=== PATIENT | male | born 1960 | race American Indian/Alaskan Native ===

== ENCOUNTER 2021-07-03 23:45 | Inpatient (IN) | payer OTHER ==
--- NOTE | 2021-07-04 01:33 | Emergency Department Report ---
HPI - General Chief Complaint: Dizziness Time Seen by Provider: 07/04/21 01:26 - HPI HPI: 61-year-old -H[place]uran male presents to the emergency department with a complaint of lightheadedness/dizziness, feeling off balanced, and slurred speech. There is no obvious last known well time but he says that this began sometime this afternoon. He denies any headache, vision change, numbness or paresthesias, chest pain, shortness of breath, fever. The patient is a cigarette smoker but denies any illicit drug use or alcohol abuse. He denies any past medical history but has not seen a primary care physician for at least 5 years. He has not taken anything for symptoms prior to presentation today. ED Past Medical Hx - Past Medical History Previous Medical History?: No - Surgical History Past Surgical History?: No ED Review of Systems ROS: Stated complaint: DIZZY SLURING SPEECH Other details as noted in HPI Comment: All other systems reviewed and negative Constitutional: denies: chills, fever Eyes: denies: eye pain, vision change ENT: denies: ear pain, throat pain Respiratory: denies: cough, shortness of breath Cardiovascular: denies: chest pain, palpitations Gastrointestinal: denies: abdominal pain, vomiting Genitourinary: denies: dysuria, discharge Musculoskeletal: denies: back pain, arthralgia Skin: denies: rash, lesions Neurological: other (dizziness, lightheaded, slurred speech) Physical Exam - Physical Exam Physical Exam: GENERAL: The patient is well-developed well-nourished. HENT: Normocephalic. Atraumatic. Patient has moist mucous membranes. EYES: Extraocular motions are intact. Pupils equal reactive to light bilaterally. No nystagmus. NECK: Supple. Trachea is midline. CHEST/LUNGS: Clear to auscultation. There is no respiratory distress noted. HEART/CARDIOVASCULAR: Regular. There is no tachycardia. There is no murmur. ABDOMEN: Abdomen is soft, nontender. Patient has normal bowel sounds. There is no abdominal distention. SKIN: Skin is warm and dry. NEURO: The patient is awake, alert, and oriented. The patient is cooperative. Mild to moderate dysarthria. No facial asymmetry. Mild right upper extremity drift. No dysmetria. Cranial nerves II through XII grossly intact. MUSCULOSKELETAL: There is no tenderness or deformity. There is no limitation range of motion. ED Course - Consultations Consultation #1: 07/04/21 03:19 Shortly after the code stroke was initiated, the patient was seen by the telemedicine neurologist, Dr. Estrella. He has requested the patient received CT angiography of the head and neck to rule out a posterior circulation stroke and look for possible thrombus or occlusion. If the patient does not have any thrombus or occlusion, he should be admitted to the hospital for MRI and further stroke work-up. ED Medical Decision Making - Lab Data Result diagrams: 07/04/21 01:53 07/04/21 01:53 Lab Results 07/04/21 07/04/21 07/04/21 Range/Units 01:48 01:53 01:53 WBC 10.5 (4.5-11.0) K/mm3 RBC 6.66 H (3.65-5.03) M/mm3 Hgb 17.1 H (11.8-15.2) gm/dl Hct 50.7 H (35.5-45.6) % MCV 76 L (84-94) fl MCH 26 L (28-32) pg MCHC 34 (32-34) % RDW 15.6 H (13.2-15.2) % Plt Count 208 (140-440) K/mm3 Lymph % (Auto) 15.7 (13.4-35.0) % [place] % (Auto) 5.5 (0.0-7.3) % Eos % (Auto) 0.0 (0.0-4.3) % Baso % (Auto) 0.7 (0.0-1.8) % Lymph # (Auto) 1.7 (1.2-5.4) K/mm3 [place] # (Auto) 0.6 (0.0-0.8) K/mm3 Eos # (Auto) 0.0 (0.0-0.4) K/mm3 Baso # (Auto) 0.1 (0.0-0.1) K/mm3 Seg Neutrophils % 78.1 H (40.0-70.0) % Seg Neutrophils # 8.2 H (1.8-7.7) K/mm3 PT 13.1 (12.2-14.9) Sec. INR 0.94 (0.87-1.13) APTT 26.7 (24.2-36.6) Sec. Thrombin Time 16.6 (15.1-19.6) Sec. Sodium (137-145) mmol/L Potassium (3.6-5.0) mmol/L Chloride (98-107) mmol/L Carbon Dioxide (22-30) mmol/L Anion Gap mmol/L BUN (9-20) mg/dL Creatinine (0.8-1.3) mg/dL Estimated GFR ml/min BUN/Creatinine Ratio % Glucose (75-100) mg/dL POC Glucose 104 (70-105) mg/dL Calcium (8.4-10.2) mg/dL Total Bilirubin (0.1-1.2) mg/dL AST (5-40) units/L ALT (7-56) units/L Alkaline Phosphatase (35-129) units/L Total Creatine Kinase (55-170) units/L CK-MB (CK-2) (0.0-4.0) ng/mL CK-MB (CK-2) Rel Index (0-4) Troponin T (0.00-0.029) ng/mL Total Protein (6.3-8.2) g/dL Albumin (3.9-5) g/dL Albumin/Globulin Ratio % TSH (0.270-4.200) mlU/mL Plasma/Serum Alcohol (0-0.07) % 07/04/21 07/04/21 07/04/21 Range/Units 01:53 01:53 01:53 WBC (4.5-11.0) K/mm3 RBC (3.65-5.03) M/mm3 Hgb (11.8-15.2) gm/dl Hct (35.5-45.6) % MCV (84-94) fl MCH (28-32) pg MCHC (32-34) % RDW (13.2-15.2) % Plt Count (140-440) K/mm3 Lymph % (Auto) (13.4-35.0) % [place] % (Auto) (0.0-7.3) % Eos % (Auto) (0.0-4.3) % Baso % (Auto) (0.0-1.8) % Lymph # (Auto) (1.2-5.4) K/mm3 [place] # (Auto) (0.0-0.8) K/mm3 Eos # (Auto) (0.0-0.4) K/mm3 Baso # (Auto) (0.0-0.1) K/mm3 Seg Neutrophils % (40.0-70.0) % Seg Neutrophils # (1.8-7.7) K/mm3 PT (12.2-14.9) Sec. INR (0.87-1.13) APTT (24.2-36.6) Sec. Thrombin Time (15.1-19.6) Sec. Sodium 139 (137-145) mmol/L Potassium 3.7 (3.6-5.0) mmol/L Chloride 101.9 (98-107) mmol/L Carbon Dioxide 29 (22-30) mmol/L Anion Gap 12 mmol/L BUN 9 (9-20) mg/dL Creatinine 1.0 (0.8-1.3) mg/dL Estimated GFR > 60 ml/min BUN/Creatinine Ratio 9 % Glucose 117 H (75-100) mg/dL POC Glucose (70-105) mg/dL Calcium 9.4 (8.4-10.2) mg/dL Total Bilirubin 0.20 (0.1-1.2) mg/dL AST 14 (5-40) units/L ALT 16 (7-56) units/L Alkaline Phosphatase 174 H (35-129) units/L Total Creatine Kinase 69 (55-170) units/L CK-MB (CK-2) 1.4 (0.0-4.0) ng/mL CK-MB (CK-2) Rel Index 2.0 (0-4) Troponin T < 0.010 (0.00-0.029) ng/mL Total Protein 8.3 H (6.3-8.2) g/dL Albumin 4.5 (3.9-5) g/dL Albumin/Globulin Ratio 1.2 % TSH 1.510 (0.270-4.200) mlU/mL Plasma/Serum Alcohol < 0.01 (0-0.07) % - EKG Data -: EKG Interpreted by [facility] EKG shows normal: sinus rhythm, axis, intervals, QRS complexes (LVH), ST-T waves Rate: normal - EKG Data When compared to previous EKG there are: previous EKG unavailable Interpretation: LVH - Radiology Data Radiology results: report reviewed CT HEAD WITHOUT CONTRAST INDICATION / CLINICAL INFORMATION: Stroke symptoms. TECHNIQUE: All CT scans at this location are performed using CT dose reduction for ALARA by means of automated exposure control. COMPARISON: None available. FINDINGS: BRAIN PARENCHYMA: No acute intracranial hemorrhage. No evidence of recent infarct. No mass effect or midline shift. Remote infarcts in the right insula, left basal ganglia, and right frontal lobe. VENTRICULAR SYSTEM/EXTRA- AXIAL SPACES: Ventricles are normal for age. No extra-axial fluid collection. ORBITS: Normal as visualized. SKELETAL SYSTEM/SOFT TISSUES: Normal bones and soft tissues. PARANASAL SINUSES/MASTOID AIR CELLS: No significant abnormality. ADDITIONAL FINDINGS: None. IMPRESSION: 1. No acute intracranial abnormality. CT angio head INDICATION / CLINICAL INFORMATION: 61 years Male; CVA. TECHNIQUE: Thin cut axial images obtained through the head during IV bolus contrast administration. Sagittal, coronal, and 3 plane MIP reconstructions performed by the technologist. NASCET type criteria used evaluate stenoses. Automated exposure control utilized for radiation reduction purposes. COMPARISON: None available. FINDINGS: INTERNAL CAROTID ARTERIES: Atherosclerotic disease seen in the communicating and cavernous portions of both internal carotid arteries with areas of mild narrowing noted. Otherwise, the internal carotid arteries are widely patent. VERTEBROBASILAR SYSTEM: Focal area of mild narrowing seen in the distal right vertebral artery. 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 No associated aneurysm seen. DISTAL BRANCHES: Distal branches of the anterior, middle, and posterior cerebral arteries are fairly symmetric in appearance and number. ANEURYSM: None identified. ADDITIONAL FINDINGS: Remainder of the surrounding soft tissues are grossly normal. IMPRESSION: Focal areas of narrowing as described above. No evidence of large vessel occlusion. Signer Name: Kirill Márquez MD, III Signed: 07/04/2021 3:27 AM Workstation Name: [id number] Transcribed By: HR Dictated By: Kirill Márquez MD Electronically Authenticated By: Kirill Márquez MD Signed Date/Time: 07/04/21326 DD/ 1 TD/TT: -- [Addendum Report Added by KIRILL MÁRQUEZ at 2021-07-04 03:38:42] [facility] [address] [place] [address] Cat Scan Report Signed Patient: PRINCE PALOMARES MR#: [id number] : 1960 Acct:[id number] Age/Sex: 61 / M ADM Date: 07/03/21 Loc: ED Attending Dr: Ordering Physician: YAS DEL ANGEL DO Date of Service: 07/04/21 Procedure(s): CT angio head Accession Number(s): [id number] cc: YAS DEL ANGEL DO . CT angio head INDICATION / CLINICAL INFORMATION: 61 years Male; CVA. TECHNIQUE: Thin cut axial images obtained through the head during IV bolus contrast administration. Sagittal, coronal, and 3 plane MIP recon structions performed by the technologist. NASCET type criteria used evaluate stenoses. Automated exposure control utilized for radiation reduction purposes. COMPARISON: None available. FINDINGS: INTERNAL CAROTID ARTERIES: Atherosclerotic disease seen in the communicating and cavernous portions of both internal carotid arteries with areas of mild narrowing noted. Otherwise, the internal carotid arteries are widely patent. VERTEBROBASILAR SYSTEM: Focal area of mild narrowing seen in the distal right vertebral artery. 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 No associated aneurysm seen. DISTAL BRANCHES: Distal branches of the anterior, middle, and posterior cerebral arteries are fa irly symmetric in appearance and number. ANEURYSM: None identified. ADDITIONAL FINDINGS: Remainder of the surrounding soft tissues are grossly normal. IMPRESSION: Focal areas of narrowing as described above. No evidence of large vessel occlusion. CT angio neck INDICATION / CLINICAL INFORMATION: 61 years Male; CVA. TECHNIQUE: Thin cut axial images obtained through the head during IV bolus contrast administration. Sagittal, coronal, and 3 plane MIP reconstructions performed by the technologist. NASCET type criteria used evaluate stenoses. All CT scans at this location are performed using CT dose reduction for ALARA by means of automated exposure control. COMPARISON: None available. FINDINGS: ARCH: Normal aortic arch branching suggested. Minimal atherosclerotic disease noted. CAROTID ARTERIES: The visualized common and internal carotid arteries are widely patent. VERTEBRAL ARTERIES: Codominant vertebral system seen. No significant stenosis appreciated. ADDITIONAL FINDINGS: Developmental venous anomaly again noted in the right frontal lobe region, which is of no clinical significance. There is osseous foraminal narrowing on the left at C4-5 related to moderate facet hypertrophy on the left at this level. Mildly prominent thyroid gland seen. No evidence of significant nodule appreciated. IMPRESSION: No significant stenosis appreciated on this CTA of the neck. - Medical Decision Making This patient presents to the emergency department with a complaint of lightheadedness/dizziness, feeling off balance, and some slurred speech or difficulty with speech that has been going on since this afternoon. This nons pecific last known well time takes the patient out of the window for TPA, but still is within the window for possible thrombectomy if necessary. A code stroke was initiated. Patient has an NIH stroke scale of 2 with some mild to moderate dysarthria and a mild right upper extremity drift. CT of the head without contrast did not show any hemorrhage, large vessel occlusion, or any other acute process. Patient was seen by the telemedicine neurologist, Dr. Ledesma, whose full recommendations are currently in the chart. Dr. Ledesma recommended CT angiography studies of the head and neck. CT angiography of the head and neck did not show any thrombus, occlusion, or any other acute process. Patient presents with extremely elevated blood pressure. He was given a dose of IV antihypertensive medication. Patient was given a full dose aspirin. He will be admitted to the hospital for further evaluation and treatment and was accepted for admission by the hospitalist, Dr. Larry. Critical Care Time: Yes Critical care time in (mins) excluding proc time.: 31 Critical care attestation.: If time is entered above; I have spent that time in minutes in the direct care of this critically ill patient, excluding procedure time. Critical care time was spent on this patient in doing his initial evaluation, multiple reeval uations, ordering and interpretation of labs and imaging, IV antihypertensive medication for his hypertensive urgency, discussion with the neurologist. Critical Care Time: 31 minutes ED Disposition Clinical Impression: Hypertensive urgency, malignant, Tobacco use disorder CVA (cerebral vascular accident) Qualifiers: CVA mechanism: unspecified Qualified Code(s): I63.9 - Cerebral infarction, unspecified Disposition: ADMITTED INPATIENT Is pt being admited?: Yes Condition: Serious Time of Disposition: 03:33
--- NOTE | 2021-07-04 01:54 | Cat Scan Report ---
CT HEAD WITHOUT CONTRAST INDICATION / CLINICAL INFORMATION: Stroke symptoms. TECHNIQUE: All CT scans at this location are performed using CT dose reduction for ALARA by means of automated exposure control. COMPARISON: None available. FINDINGS: BRAIN PARENCHYMA: No acute intracranial hemorrhage. No evidence of recent infarct. No mass effect or midline shift. Remote infarcts in the right insula, left basal ganglia, and right frontal lobe. VENTRICULAR SYSTEM/EXTRA-AXIAL SPACES: Ventricles are normal for age. No extra-axial fluid collection . ORBITS: Normal as visualized. SKELETAL SYSTEM/SOFT TISSUES: Normal bones and soft tissues. PARANASAL SINUSES/MASTOID AIR CELLS: No significant abnormality. ADDITIONAL FINDINGS: None. IMPRESSION: 1. No acute intracranial abnormality. Signer Name: Kamron Drummond MD Signed: 07/04/2021 1:50 AM Workstation Name: [id number]
--- NOTE | 2021-07-04 02:11 | Consultation ---
History of Present Illness History of present illness: [facility] Consult Note # Demographics Consult Type: Acute Stroke Level 2 (4.5-24 hrs) Patient Location: Emergency Room First Name: Adrian Last Name: Miky Date of : 1960 Age: 61 Gender: Male Facility: [facility] Time of Initial Page ( Time): 07/04/2021, 01:29 Time of Return Call ( Time): 07/04/2021, 01:43 # HPI Chief Complaint: dizziness speech changes History: 61M, tobacco user, presents with dizziness, lightheadedness, and slurred speech. On ED exam, also with slight right arm drift. LKWT 0400, symptoms present when he woke up in the afternoon. Has R exotropia. BP 246/114 # Scores Time of exam and NIHSS ( Time): 07/04/2021, 01:46 Level of Consciousness 1a: [0] = Alert; keenly responsive LOC Questions 1b: [0] = Answers both questions correctly LOC Commands 1c: [0] = Performs both tasks correctly Best Gaze 2: [0] = Normal Visual 3: [0] = No visual loss Facial Palsy 4: [0] = Normal symmetrical movements Motor Arm Left 5a: [0] = No drift Motor Arm Right 5b: [1] = Drift Motor Leg Left 6a: [0] = No drift Motor Leg Right 6b: [0] = No drift Limb Ataxia 7: [0] = Absent Sensory 8: [0] = Normal Best Language 9: [0] = No aphasia Dysarthria 10: [1] = [id number] dysarthria Extinction and Inattention 11: [0] = No abnormality NIHSS Total: 2 # Data Head CT: no bleed per radiologist read # Assessment Impression: Ischemic Stroke (Acute) # Plan Thrombolytic/Intervention: NOT IV Thrombolysis or IA Intervention candidate Thrombolytic Exclusion: > 4.5 hours Intraarterial Exclusion: non-disabling Target Blood Pressure: SBP < 220 DBP < 105 Labs: hemoglobin A1c lipid panel Imaging: (urgency: STAT): CT Angiogram Head and CT Angiogram Neck AND call back with results if abnormal Imaging: (urgency: routine): MRI Brain without contrast Diagnostic Test: echo without bubble study Therapy/Evaluation: PT/OT evaluation speech/swallow consultation Medication: ASA 325 then 81 daily Atorvastatin 80, then tailor daily dose to LDL < 70 goal If < 50% stenosis in cervical ICAs, give Plavix 300 x1 then 75 daily x3 weeks (3 weeks DAPT, then ASA monotherapy) DVT Prophylaxis: SCD chemical DVT prophylaxis Other: permissive hypertension telemetry monitoring I have discussed my recommendations with the referring provider Disposition: admit # Logistics Telemedicine: Interactive 2 way audio and visual telecommunication technology was utilized during this visit Electronically signed at 07/04/2021 02:11 (Eastern Time) by Baltazar Estrella MD Medications and Allergies Allergies Allergy/AdvReac Type Severity Reaction Status Date / Time No Known Allergies Allergy Unverified 07/04/21 01:14
[2021-07-04 02:12] LABS: Basophils # (Auto) 0.1 K/mm3 (0.0-0.1); Basophils % (Auto) 0.7 % (0.0-1.8); Hematocrit 50.7 % (35.5-45.6); Hemoglobin 17.1 gm/dl (11.8-15.2); Lymphocytes # (Auto) 1.7 K/mm3 (1.2-5.4); Lymphocytes % (Auto) 15.7 % (13.4-35.0); Mean Corpuscular HGB Conc 34 % (32-34); Mean Corpuscular Volume 76 fl (84-94); Monocytes # (Auto) 0.6 K/mm3 (0.0-0.8); Monocytes % (Auto) 5.5 % (0.0-7.3); Platelet Count 208 K/mm3 (140-440); Red Blood Count 6.66 M/mm3 (3.65-5.03); Red Cell Distribution Width 15.6 % (13.2-15.2)
[2021-07-04] MEDS ORDERED: MAGNESIUM HYDROXIDE (MOM) ORAL LIQD UDC PO PRN (02:15)
[2021-07-04] MEDS ORDERED: ACETAMINOPHEN 325 MG TAB PO PRN (02:15)
[2021-07-04] MEDS ORDERED: MORPHINE 4 MG/1 ML INJ IV PRN (02:15)
[2021-07-04] MEDS ORDERED: ONDANSETRON 4 MG/2 ML INJ IV PRN (02:15)
[2021-07-04] MEDS ORDERED: MORPHINE 2 MG/1 ML INJ IV PRN (02:15)
[2021-07-04 02:37] LABS: Alanine Aminotransferase 16 units/L (7-56); Albumin 4.5 g/dL (3.9-5); BUN/Creatinine Ratio 9; Blood Urea Nitrogen 9 mg/dL (9-20); Calcium 9.4 mg/dL (8.4-10.2); Creatine Kinase MB 1.4 ng/mL (0.0-4.0); Hemolysis Index 2; INR 0.94 (0.87-1.13)
[2021-07-04 02:38] LABS: Partial Thromboplastin Time 26.7 Sec. (24.2-36.6); Thrombin Time 16.6 Sec. (15.1-19.6)
[2021-07-04] MEDS ORDERED: ASPIRIN 81 MG TAB CHEW PO ONE (02:44)
--- NOTE | 2021-07-04 03:32 | Cat Scan Report ---
. CT angio head INDICATION / CLINICAL INFORMATION: 61 years Male; CVA. TECHNIQUE: Thin cut axial images obtained through the head during IV bolus contrast administration. S agittal, coronal, and 3 plane MIP reconstructions performed by the technologist. NASCET type criteria used evaluate stenoses. Automated exposure control utilized for radiation reduction purposes. COMPARISON: None available. FINDINGS: INTERNAL CAROTID ARTERIES: Atherosclerotic disease seen in the communicating and cavernous portions o f both internal carotid arteries with areas of mild narrowing noted. Otherwise, the internal carotid arteries are widely patent. VERTEBROBASILAR SYSTEM: Focal area of mild narrowing seen in the distal right vertebral artery. 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 No associated aneurysm seen. DISTAL BRANCHES: Distal branches of the anterior, middle, and posterior cerebral arteries are fairly symmetric in appearance and number. ANEURYSM: None identified. ADDITIONAL FINDINGS: Remainder of the surrounding soft tissues are grossly normal. IMPRESSION: Focal areas of narrowing as described above. No evidence of large vessel occlusion. Signer Name: Kirill Márquez MD, III Signed: 07/04/2021 3:27 AM Workstation Name: [email or web address]
--- NOTE | 2021-07-04 03:39 | History and Physical Report ---
History of Present Illness Date of examination: 07/04/21 Date of admission: 07/04/2021 Chief complaint: Slurred speech Dizziness History of present illness: 61-year-old -Maltese male with no significant past medical history presents to the emergency room today complaining of dizziness/lightheadedness, slurred speech and feeling off balance with started sometime this afternoon. He denies any headache, no fever or chills and no diaphoresis. Denies any numbness or paresthesias. No chest pain or shortness of breath, no nausea vomiting and no abdominal pain. Patient denies any sick contacts and no recent travel. Denies any contact with anyone with COVID-19. He admits that he has not followed up with any primary care physician in about 5 years. Upon arrival in the emergency room blood pressure was quite elevated with systolic in the 200s and diastolic in the 80s. Work-up in the emergency room today, CTA of the head and neck were unremarkable. CT of the head showed no acute findings. Patient was evaluated by the teleneurologist and recommendations have been worked up for possible CVA. Past History Past Medical History: hypertension Past Surgical History: denies: No surgical history Social history: smoking (Smokes 2 packs of cigarettes daily) Family history: no significant family history Medications and Allergies Allergies Allergy/AdvReac Type Severity Reaction Status Date / Time No Known Allergies Allergy Unverified 07/04/21 01:14 Active Meds: Active Medications Acetaminophen (Acetaminophen 325 Mg Tab) 650 mg PO Q6H PRN PRN Reason: Pain MILD(1-3)/Fever >100.5/LOVELAEC Aspirin (Aspirin 325 Mg Tab) 325 mg PO QDAY HILARY Atorvastatin Calcium (Atorvastatin 40 Mg Tab) 40 mg PO QHS HILARY Bisacodyl (Bisacodyl 10 Mg Rect Supp) 10 mg MA QDAY PRN PRN Reason: Constipation Heparin Sodium (Porcine) (Heparin 5,000 Unit/1 Ml Vial) 5,000 unit SUB-Q Q8HR HILARY Magnesium Hydroxide (Magnesium Hydroxide (Mom) Oral Liqd Udc) 30 ml PO Q4H PRN PRN Reason: Constipation Morphine Sulfate (Morphine 2 Mg/1 Ml Inj) 2 mg IV Q4H PRN PRN Reason: Pain, Moderate (4-6) Morphine Sulfate (Morphine 4 Mg/1 Ml Inj) 4 mg IV Q4H PRN PRN Reason: Pain , Severe (7-10) Ondansetron HCl (Ondansetron 4 Mg/2 Ml Inj) 4 mg IV Q8H PRN PRN Reason: Nausea And Vomiting Sodium Chloride (Sodium Chloride 0.9% 10 Ml Flush Syringe) 10 ml IV BID HILARY Sodium Chloride (Sodium Chloride 0.9% 10 Ml Flush Syringe) 10 ml IV PRN PRN PRN Reason: LINE FLUSH Sodium Chloride (Sodium Chloride 0.9% 10 Ml Flush Syringe) 10 ml IV BID HILARY Sodium Chloride (Sodium Chloride 0.9% 10 Ml Flush Syringe) 10 ml IV PRN PRN PRN Reason: LINE FLUSH Sodium Chloride (Sodium Chloride 0.9% 10 Ml Flush Syringe) 10 ml INJ PRN PRN PRN Reason: LINE FLUSH Review of Systems Constitutional: no fever, no chills Ears, nose, mouth and throat: no nasal congestion, no sore throat Cardiovascular: no chest pain, no palpitations Respiratory: no cough, no shortness of breath Gastrointestinal: no abdominal pain, no nausea, no vomiting, no diarrhea Genitourinary Male: no dysuria, no hematuria, no flank pain, no nocturia Musculoskeletal: no neck pain, no low back pain Integumentary: no rash, no pruritis Neurological: lack of coordination, change in speech, no headaches, no confusion Psychiatric: no anxiety, no depression Endocrine: no polyphagia, no polydipsia, no polyuria, no nocturia Exam - Constitutional Vitals: Temp Pulse Resp BP Pulse Ox 89 191/98 07/04/21 02:11 07/04/21 02:11 General appearance: Present: no acute distress, mild distress, well-nourished, disheveled - EENT Eyes: Present: PERRL, EOM intact. Absent: scleral icterus ENT: hearing intact, clear oral mucosa, dentition normal - Neck Neck: Present: supple, normal ROM - Respiratory Respiratory effort: normal Respiratory: bilateral: CTA - Cardiovascular Rhythm: regular Heart Sounds: Present: S1 & S2. Absent: gallop, systolic murmur, diastolic murmur, rub, click - Extremities Extremities: no ischemia, pulses intact, pulses symmetrical, No edema, normal temperature, normal color, Full ROM Peripheral Pulses: within normal limits - Abdominal General gastrointestinal: Present: soft, non-tender, non-distended, normal bowel sounds. Absent: mass - Integumentary Integumentary: Present: clear, warm, dry. Absent: rash - Musculoskeletal Musculoskeletal: strength equal bilaterally - Psychiatric Psychiatric: appropriate mood/affect, intact judgment & insight, memory intact, cooperative - Neurologic Neurologic: CNII-XII intact, no focal deficits, moves all extremities HEART Score - HEART Score Troponin: Troponin T < 0.010 ng/mL (0.00-0.029) 07/04/21 01:53 Results - Labs CBC & Chem 7: 07/04/21 01:53 07/04/21 01:53 Labs: Abnormal lab results 07/04/21 07/04/21 Range/Units 01:53 01:53 RBC 6.66 H (3.65-5.03) M/mm3 Hgb 17.1 H (11.8-15.2) gm/dl Hct 50.7 H (35.5-45.6) % MCV 76 L (84-94) fl MCH 26 L (28-32) pg RDW 15.6 H (13.2-15.2) % Seg Neutrophils % 78.1 H (40.0-70.0) % Seg Neutrophils # 8.2 H (1.8-7.7) K/mm3 Glucose 117 H (75-100) mg/dL Alkaline Phosphatase 174 H (35-129) units/L Total Protein 8.3 H (6.3-8.2) g/dL Assessment and Plan - Patient Problems (1) CVA (cerebral vascular accident) Current Visit: Yes Status: Acute Qualifiers: CVA mechanism: unspecified Qualified Code(s): I63.9 - Cerebral infarction, unspecified Plan to address problem: Patient admitted and placed on telemetry. We will start patient on daily aspirin and statin. Patient will be scheduled for MRI of the brain. Consult placed to neurology for evaluation and recommendation. (2) Hypertensive urgency, malignant Current Visit: No Status: Acute Plan to address problem: We place patient on antihypertensive as needed. We will monitor vital signs closely. (3) Tobacco use disorder Current Visit: No Status: Acute Plan to address problem: Patient counseled on quitting tobacco abuse. We offer nicotine patch as needed. (4) DVT prophylaxis Current Visit: No Status: Acute Plan to address problem: Patient placed on subcutaneous heparin. (5) Full code status Current Visit: No Status: Acute Plan to address problem: Patient is full code.
--- NOTE | 2021-07-04 03:40 | Cat Scan Report ---
CT angio neck INDICATION / CLINICAL INFORMATION: 61 years Male; CVA. TECHNIQUE: Thin cut axial images obtained through the head during IV bolus contrast administration. S agittal, coronal, and 3 plane MIP reconstructions performed by the technologist. NASCET type criteria used evaluate stenoses. All CT scans at this location are performed using CT dose reduction for ALAR A by means of automated exposure control. COMPARISON: None available. FINDINGS: ARCH: Normal aortic arch branching suggested. Minimal atherosclerotic disease noted. CAROTID ARTERIES: The visualized common and internal carotid arteries are widely patent. VERTEBRAL ARTERIES: Codominant vertebral system seen. No significant stenosis appreciated. ADDITIONAL FINDINGS: Developmental venous anomaly again noted in the right frontal lobe region, which is of no clinical significance. There is osseous foraminal narrowing on the left at C4-5 related to moderate facet hypertrophy on the left at this level. Mildly prominent thyroid gland seen. No evidence of significant nodule appreciated. IMPRESSION: No significant stenosis appreciated on this CTA of the neck. Signer Name: Kirill Márquez MD, III Signed: 07/04/2021 3:35 AM Workstation Name: [email or web address]
[2021-07-04] MEDS: HEPARIN 5,000 UNIT/1 ML VIAL SUB-Q SCH ×2 (06:13→13:38)
[2021-07-04 06:44] LABS: Bilirubin,Urine NEG (Negative); Blood,Urine SM (Negative); Color,Urine Yellow (Yellow); Mucus,Urine FEW /HPF; Protein,Urine <15 mg/dL mg/dL (Negative); Urobilinogen,Urine < 2.0 mg/dL (<2.0)
[2021-07-04 06:51] LABS: Amphetamine Screen,Urine PRESUMPTIVE NEGATIVE; Benzodiazepines Screen,Urine PRESUMPTIVE NEGATIVE; Cannabinoid Screen,Urine PRESUMPTIVE NEGATIVE; Cocaine Screen,Urine PRESUMPTIVE NEGATIVE; Methadone Screen,Urine PRESUMPTIVE NEGATIVE; Opiate Screen,Urine PRESUMPTIVE NEGATIVE
[2021-07-04] MEDS ORDERED: hydrALAZINE 10 MG TAB PO PRN (06:55)
--- NOTE | 2021-07-04 08:23 | Consultation ---
History of Present Illness Consult date: 07/04/21 Reason for Consult: Dizziness,slurred speech and HTN History of present illness: Slurred speech Dizziness History of present illness: 61-year-old -[place] male with no significant past medical history presents to the emergency room today complaining of dizziness/lightheadedness, slurred speech and feeling off balance with started sometime this afternoon. He denies any headache, no fever or chills and no diaphoresis. Denies any numbness or paresthesias. No chest pain or shortness of breath, no nausea vomiting and no abdominal pain. Patient denies any sick contacts and no recent travel. Denies any contact with anyone with COVID-19. He admits that he has not followed up with any primary care physician in about 5 years. Upon arrival in the emergency room blood pressure was quite elevated with systo lic in the 200s and diastolic in the 80s. Work-up in the emergency room today, CTA of the head and neck were remarkable for intracranial cavernous ICA stenosis and distal right vertebral a. stensosis. CT of the head showed no acute findings. MRI brain today is remarkable for left saunders radiata acute infarct Patient was evaluated by the teleneurologist and recommendations have been worked up for possible CVA. Past History Past Medical History: hypertension Past Surgical History: denies: No surgical history Social history: smoking (Smokes 2 packs of cigarettes daily) Family history: no significant family history Medications and Allergies Allergies Allergy/AdvReac Type Severity Reaction Status Date / Time No Known Allergies Allergy Unverified 07/04/21 01:14 Active Meds: Active Medications Acetaminophen (Acetaminophen 325 Mg Tab) 650 mg PO Q6H PRN PRN Reason: Pain MILD(1-3)/Fever >100.5/LOVELACE Aspirin (Aspirin 325 Mg Tab) 325 mg PO QDAY HILARY Atorvastatin Calcium (Atorvastatin 40 Mg Tab) 40 mg PO QHS HILARY Bisacodyl (Bisacodyl 10 Mg Rect Supp) 10 mg NE QDAY PRN PRN Reason: Constipation Heparin Sodium (Porcine) (Heparin 5,000 Unit/1 Ml Vial) 5,000 unit SUB-Q Q8HR HILARY Magnesium Hydroxide (Magnesium Hydroxide (Mom) Oral Liqd Udc) 30 ml PO Q4H PRN PRN Reason: Constipation Morphine Sulfate (Morphine 2 Mg/1 Ml Inj) 2 mg IV Q4H PRN PRN Reason: Pain, Moderate (4-6) Morphine Sulfate (Morphine 4 Mg/1 Ml Inj) 4 mg IV Q4H PRN PRN Reason: Pain , Severe (7-10) Ondansetron HCl (Ondansetron 4 Mg/2 Ml Inj) 4 mg IV Q8H PRN PRN Reason: Nausea And Vomiting Sodium Chloride (Sodium Chloride 0.9% 10 Ml Flush Syringe) 10 ml IV BID HILARY Sodium Chloride (Sodium Chloride 0.9% 10 Ml Flush Syringe) 10 ml IV PRN PRN PRN Reason: LINE FLUSH Sodium Chloride (Sodium Chloride 0.9% 10 Ml Flush Syringe) 10 ml IV BID HILARY Sodium Chloride (Sodium Chloride 0.9% 10 Ml Flush Syringe) 10 ml IV PRN PRN PRN Reason: LINE FLUSH Sodium Chloride (Sodium Chloride 0.9% 10 Ml Flush Syringe) 10 ml INJ PRN PRN PRN Reason: LINE FLUSH Review of Systems Constitutional: no fever, no chills Ears, nose, mouth and throat: no nasal congestion, no sore throat Cardiovascular: no chest pain, no palpitations Respiratory: no cough, no shortness of breath Gastrointestinal: no abdominal pain, no nausea, no vomiting, no diarrhea Genitourinary Male: no dysuria, no hematuria, no flank pain, no nocturia Musculoskeletal: no neck pain, no low back pain Integumentary: no rash, no pruritis Neurological: lack of coordination, change in speech, no headaches, no confusion Psychiatric: no anxiety, no depression Endocrine: no polyphagia, no polydipsia, no polyuria, no nocturia Past History Past Medical History: hypertension Past Surgical History: denies: No surgical history Social history: smoking (Smokes 2 packs of cigarettes daily) Family history: no significant family history Medications and Allergies Allergies Allergy/AdvReac Type Severity Reaction Status Date / Time No Known Allergies Allergy Unverified 07/04/21 01:14 Active Meds: Active Medications Acetaminophen (Acetaminophen 325 Mg Tab) 650 mg PO Q6H PRN PRN Reason: Pain MILD(1-3)/Fever >100.5/LOVELACE Aspirin (Aspirin 325 Mg Tab) 325 mg PO QDAY HILARY Atorvastatin Calcium (Atorvastatin 40 Mg Tab) 40 mg PO QHS HILARY Bisacodyl (Bisacodyl 10 Mg Rect Supp) 10 mg NE QDAY PRN PRN Reason: Constipation Heparin Sodium (Porcine) (Heparin 5,000 Unit/1 Ml Vial) 5,000 unit SUB-Q Q8HR [facility] Last Admin: 07/04/21 06:13 Dose: 5,000 unit Documented by: Hydralazine HCl (Hydralazine 10 Mg Tab) 10 mg PO Q4H PRN PRN Reason: hypertension Magnesium Hydroxide (Magnesium Hydroxide (Mom) Oral Liqd Udc) 30 ml PO Q4H PRN PRN Reason: Constipation Morphine Sulfate (Morphine 2 Mg/1 Ml Inj) 2 mg IV Q4H PRN PRN Reason: Pain, Moderate (4-6) Morphine Sulfate (Morphine 4 Mg/1 Ml Inj) 4 mg IV Q4H PRN PRN Reason: Pain , Severe (7-10) Ondansetron HCl (Ondansetron 4 Mg/2 Ml Inj) 4 mg IV Q8H PRN PRN Reason: Nausea And Vomiting Sodium Chloride (Sodium Chloride 0.9% 10 Ml Flush Syringe) 10 ml IV BID HILARY Sodium Chloride (Sodium Chloride 0.9% 10 Ml Flush Syringe) 10 ml IV PRN PRN PRN Reason: LINE FLUSH Physical Examination - Vital Signs Vital Signs: Vital Signs Temp Pulse Resp BP Pulse Ox 98.1 F 107 H 16 212/105 98 07/04/21 01:17 07/04/21 01:17 07/04/21 01:17 07/04/21 01:17 07/04/21 01:17 - Constitutional General appearance: comfortable - EENT EENT: Present: PERRL, mucous membranes moist - Respiratory Respiratory: Present: chest non-tender, lungs clear, rhonchi - Cardiovascular Cardiovascular: Present: regular rate, normal S1, normal S2 Extremities: Present: no peripheral edema bilatateraly, no clubbing, cyanosis - Gastrointestinal Gastrointestinal: Present: normoactive bowel sounds - Integumentary Integumentary: Present: normal - Neurologic Cranial nerve examination: PERRL, EOMI, other (slight right facial droop and lazy eye right side since ) Speech examination: intact Sensorimotor examination: intact Detailed motor examination: other (right pronator drift 4-/5 , right lower 4/5 plasnter is down brisk reflexes bilteral and positive hoffnman sign no clonus ,gait not done) - Level of Consciousness 1a. Level of Consciousness: alert/keenly responsive - LOC Questions 1b. LOC Questions: answers both correctly - LOC Command 1c. LOC Commands: performs tasks correctly - Best Gaze 2. Best Gaze: normal - Visual 3. Visual: no visual loss - Facial Palsy 4. Facial Palsy: minor paralysis - Motor Arm 5a. Motor Arm Left: no drift 5b. Motor Arm Right: drift - Motor Leg 6a. Motor Leg Left: no drift 6b. Motor Leg Right: no drift - Limb Ataxia 7. Limb Ataxia: present 1 limb - Sensory 8. Sensory: normal - Best Language 9. Best Language: no aphasia Results - Laboratory Findings CBC and BMP: 07/04/21 01:53 07/04/21 01:53 Abnormal Lab Findings: Abnormal Labs 07/04/21 07/04/21 01:53 01:53 RBC 6.66 H Hgb 17.1 H Hct 50.7 H MCV 76 L MCH 26 L RDW 15.6 H Seg Neutrophils % 78.1 H Seg Neutrophils # 8.2 H Glucose 117 H Alkaline Phosphatase 174 H Total Protein 8.3 H Assessment and Plan Assessment and Plan - Patient Problems (1) CVA (cerebral vascular accident) -this is 61 ys old male with lhx of HTN not on any medications preesnted with a new onset of right side weakness and unsteady gait -he is with hx of right lazy eye -Ct brain is unremarkable -CTA brain and neck are remarkable for Intra cranial sclerosis right and left Cavernous segment ICA and right vertebral a. -MRI brain is suggestive of acute left corna radiata infarct -echo is pending -A1C and LDL are pending -Started on ASA 325 mg and lipitor 40 mg -Pt/ST evaluate (2) Hypertensive urgency, malignant We place patient on antihypertensive as needed. We will monitor vital signs closely. (3) Tobacco use disorder Patient counseled on quitting tobacco abuse. We offer nicotine patch as needed. (4) DVT prophylaxis Patient placed on subcutaneous heparin. (5) Full code status Patient is full code. will follow
[2021-07-04] MEDS ORDERED: hydrALAZINE 20 MG/1 ML INJ IV PRN (08:53)
--- NOTE | 2021-07-04 08:58 | Event Note ---
Date: 07/04/21 Patient seen and examined resting comfortably is normal compliance with medical management as he does not follow-up with any physician. He reports positive tobacco use but no alcohol use counseling provided for 15 minutes about tobacco cessation and also current management plan. Will adjust blood pressure medication for better control mentating permissive hypertension begin to further wean me in a.m.
--- NOTE | 2021-07-04 10:38 | Magnetic Resonance Report ---
MR brain wo con INDICATION / CLINICAL INFORMATION: 61 years Male; stroke. TECHNIQUE: Multiplanar, multisequence MR images of the brain were obtained. COMPARISON: None available. FINDINGS: BRAIN / INTRACRANIAL CONTENTS: There is acute to infarct along the left saunders radiata measuring appr oximately 2 cm in greatest AP dimension at. There is otherwise extensive cerebral and pontine white m atter most consistent with microvascular angiopathy. There are old infarcts involving basal ganglia b ilaterally and right akhil. The diffusion imaging reveals no further evidence of recent infarction. This mild cerebral atrophy at. The ventricular system is correspondingly appropriate in size and conf iguration. No extra-axial fluid collections or significant mass effect is identified at. Is also old infarct involving right precentral gyrus with encephalomalacia laterally. CRANIOCERVICAL JUNCTION: No significant abnormality. VASCULAR FLOW-VOIDS: No significant abnormality. ORBITS: No significant abnormality of visualized orbits. SINUSES / MASTOIDS: No significant abnormality in the visualized paranasal sinuses or mastoid air audrey ls. ADDITIONAL FINDINGS: None. IMPRESSION: 1. There is a 2 cm acute infarct involving left saunders radiata as detailed above. 2. There is otherwise extensive microvascular angiopathy and multiple old infarcts as described. Signer Name: Jose Centeno MD Signed: 07/04/2021 10:33 AM Workstation Name: [id number]
[2021-07-04] MEDS: VALSARTAN 40 MG TAB PO SCH (12:03)
[2021-07-04] MEDS: ASPIRIN 325 MG TAB PO SCH (12:03)
[2021-07-05] MEDS: HEPARIN 5,000 UNIT/1 ML VIAL SUB-Q SCH ×4 (00:01→21:06)
[2021-07-05 06:05] LABS: BUN/Creatinine Ratio 16; Blood Urea Nitrogen 13 mg/dL (9-20); Calcium 9.2 mg/dL (8.4-10.2); Chol/HDL Ratio 3.07 %; HDL Cholesterol 38 mg/dL (40-59); Hemolysis Index 7; LDL Cholesterol,Direct 61 mg/dL (50-130)
[2021-07-05 06:17] LABS: Basophils % (Auto) 0.6 % (0.0-1.8); Eosinophils # (Auto) 0.1 K/mm3 (0.0-0.4); Eosinophils % (Auto) 0.9 % (0.0-4.3); Hematocrit 45.5 % (35.5-45.6); Hemoglobin 15.2 gm/dl (11.8-15.2); Lymphocytes # (Auto) 2.3 K/mm3 (1.2-5.4); Mean Corpuscular HGB Conc 33 % (32-34); Mean Corpuscular Volume 76 fl (84-94); Monocytes # (Auto) 0.5 K/mm3 (0.0-0.8); Monocytes % (Auto) 6.8 % (0.0-7.3); Platelet Count 196 K/mm3 (140-440); Red Blood Count 5.98 M/mm3 (3.65-5.03); Red Cell Distribution Width 15.6 % (13.2-15.2)
[2021-07-05 06:24] LABS: INR 0.95 (0.87-1.13)
[2021-07-05] MEDS: VALSARTAN 40 MG TAB PO SCH ×3 (09:52→21:05)
[2021-07-05] MEDS: ASPIRIN 325 MG TAB PO SCH (09:52)
--- NOTE | 2021-07-05 11:28 | Magnetic Resonance Report ---
MR cervical spine wo con INDICATION / CLINICAL INFORMATION: 61 years Male; Cervical Myelopathy, progressive LEs weakness and frequent fall. TECHNIQUE: Multisequence, multiplanar images of the cervical spine were obtained. COMPARISON: None available. FINDINGS: CRANIOCERVICAL JUNCTION:No significant abnormality. ALIGNMENT: There is no significant spondylolisthesis involving cervical spine. VERTEBRAE:There is mild edema involving left articular facets at C4-5. There is no significant edema of the cervical vertebral bodies. VISUALIZED SPINAL CORD: The cervical spinal cord appears to demonstrate appropriate signal intensity on the combination of sequences. [id number] ANALYSIS: C2-3: No significant abnormality. C3-4: There is no disc protrusion or central stenosis at. The left facet joint hypertrophy results in mild left foraminal narrowing. C4-5: There is no central spinal stenosis. The left facet joint hypertrophy contributes to moderate l eft neural foraminal narrowing. C5-6: There is a slight disc bulge without significant central spinal stenosis. There is moderate to marked right and moderate left neural foraminal narrowing C6-7: There is no central spinal stenosis at. There is moderate to right and milder left neural moy inal narrowing. C7-T1: No significant abnormality. PARASPINAL SOFT TISSUES: No significant abnormality. ADDITIONAL FINDINGS: No epidural collections are identified. IMPRESSION: 1. There are multilevel degenerative changes and neural foraminal narrowing involving cervical spine, most notable at C5-6 and C6-7 and on the left at C4-5 as detailed above. Signer Name: Jose Centeno MD Signed: 07/05/2021 11:24 AM Workstation Name: [id number]
--- NOTE | 2021-07-05 11:37 | Electrocardiograph Report ---
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
--- NOTE | 2021-07-05 13:02 | Progress Note ---
Assessment and Plan Assessment and Plan - Patient Problems # CVA (cerebral vascular accident) -this is 61 ys old male with lhx of HTN not on any medications presented with a new onset of right side weakness and unsteady gait -he is with hx of right lazy eye -Ct brain is unremarkable -CTA brain and neck are remarkable for Intra cranial sclerosis right and left Cavernous segment ICA and right vertebral a. -MRI brain is suggestive of acute left corna radiata infarct -echo is remarkable for Ef#50-55% -A1C pending and LDL #61 -Started on ASA 325 mg and lipitor 40 mg -Pt/ST evaluate # Recurrent vertigo positional -etiology not clear -no sign of central process -no hx of vertigo before -suggest antivert prn and check for orthostatic changes -consider repeat MRI brain as needed -Avoid aggressive BP control # Hypertensive urgency, malignant -We place patient on antihypertensive as needed. -We will monitor vital signs closely. -now BP is <120/80 avoid aggressive BP control and hydrate !! # Brisk reflexes upper and lower with no clonus no lopez sign -b12 WNL -MRI cervical showed lateral stenosis with no central process # Tobacco use disorder Patient counseled on quitting tobacco abuse. We offer nicotine patch as needed. # DVT prophylaxis Patient placed on subcutaneous heparin. # Full code status Patient is full code. PLAN 1- avoid aggressive BP control mainatin around 150/80 2- Hydration 3- check for orthostatic changes 4- antivert 0.5 tablet Q6 hours prn for vertigo 5- maintain ASA and Lipitor 6- Pt therapy will follow Subjective Date of service: 07/05/21 Principal diagnosis: right side weakness and vertigo today Interval history: according to pt. weakness is better he is complaining of recurrent vertigo when sit or move head denied any diplopia or swallowing difficulty Objective - Vital Sign Vital Signs - 12hr 07/05/21 07/05/21 07/05/21 01:01 02:01 02:41 Temperature Pulse Rate 73 72 57 L Respiratory 16 17 15 Rate Blood Pressure 135/69 134/62 134/67 O2 Sat by Pulse 98 88 96 Oximetry 07/05/21 07/05/21 07/05/21 02:50 03:01 03:11 Temperature Pulse Rate 61 76 73 Respiratory 17 14 20 Rate Blood Pressure 109/51 109/51 122/65 O2 Sat by Pulse 99 98 100 Oximetry 07/05/21 07/05/21 07/05/21 03:21 03:31 03:41 Temperature Pulse Rate 64 58 L 57 L Respiratory 18 17 16 Rate Blood Pressure 131/62 131/62 102/43 O2 Sat by Pulse 98 98 98 Oximetry 07/05/21 07/05/21 07/05/21 03:51 04:26 07:37 Temperature 98.8 F 98.6 F Pulse Rate 56 L 68 67 Respiratory 15 16 20 Rate Blood Pressure 111/47 116/70 123/63 O2 Sat by Pulse 99 97 98 Oximetry 07/05/21 07/05/21 09:52 11:26 Temperature 98.9 F Pulse Rate 70 90 Respiratory 20 Rate Blood Pressure 125/80 101/51 O2 Sat by Pulse 95 Oximetry - General Apperance Constitutional: comfortable - EENT EENT: PERRL, mucous membranes moist - Respiratory Respiratory: lungs clear, rhonchi - Cardiovascular Cardiovascular: regular rate, normal S1, normal S2 Extremities: no peripheral edema bilat, no clubbing, cyanosis - Gastrointestinal Gastrointestinal: normoactive bowel sounds - Integumentary Integumentary: normal - Neurologic Cranial nerve examination: PERRL, EOMI, other (lazy right eye with decrese vision , slight right facial droop) Detailed motor examination: other (right side pronator drift , gait not done also noted slight dysmetria right upper !!) - Laboratory Findings CBC and BMP: 07/05/21 05:24 07/05/21 05:24 Abnormal Lab Findings: Abnormal Labs 07/04/21 07/04/21 07/05/21 01:53 01:53 05:24 RBC 6.66 H 5.98 H Hgb 17.1 H Hct 50.7 H MCV 76 L 76 L MCH 26 L 25 L RDW 15.6 H 15.6 H Seg Neutrophils % 78.1 H Seg Neutrophils # 8.2 H Glucose 117 H Alkaline Phosphatase 174 H Total Protein 8.3 H HDL Cholesterol 07/05/21 05:24 RBC Hgb Hct MCV MCH RDW Seg Neutrophils % Seg Neutrophils # Glucose Alkaline Phosphatase Total Protein HDL Cholesterol 38 L
--- NOTE | 2021-07-05 15:53 | Progress Note ---
Assessment and Plan Assessment and plan: Hospital course to date 07/05/2021: Patient still remains dizzy when trying to ambulate. Physical therap y recommend acute rehab. Set up for rehab will be challenging as patient is , currently working with case management for outpatient set up for [facility] PT services. MRI C-spine ordered by neurology demonstrates multilevel degenerative changes and foraminal narrowing. We will continue supportive care. Assessment and plan (1) CVA (cerebral vascular accident) Current Visit: Yes Status: Acute Qualifiers: CVA mechanism: unspecified Qualified Code(s): I63.9 - Cerebral infarction, unspecified Plan to address problem: Patient admitted and placed on telemetry. We will start patient on daily aspirin and statin. Patient will be scheduled for MRI of the brain. Consult placed to neurology for evaluation and recommendation. Aspirin /statin (2) Hypertensive urgency, malignant Current Visit: No Status: Acute Plan to address problem: We place patient on antihypertensive as needed. We will monitor vital signs closely. (3) Recurrent positional vertigo Current Visit: No Status: Acute Plan to address problem: Per neurology etiology is unclear avoid overtreating blood pressure, will continue to monitor Antivert as needed (4) Tobacco use disorder Current Visit: No Status: Acute Plan to address problem: Patient counseled on quitting tobacco abuse. We offer nicotine patch as needed. (5) DVT prophylaxis Current Visit: No Status: Acute Plan to address problem: Patient placed on subcutaneous heparin. (6) Full code status Current Visit: No Status: Acute Plan to address problem: Patient is full code. History Interval history: No acute complaints this morning. On subsequent encounter patient states that he is feeling dizzy when he was working with physical therapy. He denies any issues with swallowing however he states that his speech is still not back at baseline. Hospitalist Physical - Physical exam Narrative exam: - General Apperance Constitutional: comfortable, dizzy when walking - EENT EENT: PERRL, mucous membranes moist - Respiratory Respiratory: lungs clear, rhonchi - Cardiovascular Cardiovascular: regular rate, normal S1, normal S2 Extremities: no peripheral edema bilat, no clubbing, cyanosis - Gastrointestinal Gastrointestinal: normoactive bowel sounds - Integumentary Integumentary: normal - Neurologic Cranial nerve examination: PERRL, EOMI, other (lazy right eye with decreased vision , slight right facial droop) Detailed motor examination: other (right side pronator drift , gait not done also noted slight dysmetria right upper) - Constitutional Vitals: Temp Pulse Resp BP Pulse Ox 98.9 F 90 20 101/51 95 07/05/21 11:26 07/05/21 11:26 07/05/21 11:26 07/05/21 11:26 07/05/21 11:26 General appearance: Present: no acute distress, mild distress, well-nourished, disheveled HEART Score - HEART Score Troponin: Troponin T < 0.010 ng/mL (0.00-0.029) 07/04/21 01:53 Results - Labs CBC & Chem 7: 07/05/21 05:24 07/05/21 05:24 Labs: Laboratory Last Values WBC 7.4 K/mm3 (4.5-11.0) 07/05/21 05:24 RBC 5.98 M/mm3 (3.65-5.03) H 07/05/21 05:24 Hgb 15.2 gm/dl (11.8-15.2) 07/05/21 05:24 Hct 45.5 % (35.5-45.6) 07/05/21 05:24 MCV 76 fl (84-94) L 07/05/21 05:24 MCH 25 pg (28-32) L 07/05/21 05:24 MCHC 33 % (32-34) 07/05/21 05:24 RDW 15.6 % (13.2-15.2) H 07/05/21 05:24 Plt Count 196 K/mm3 (140-440) 07/05/21 05:24 Lymph % (Auto) 31.0 % (13.4-35.0) 07/05/21 05:24 Williamson % (Auto) 6.8 % (0.0-7.3) 07/05/21 05:24 Eos % (Auto) 0.9 % (0.0-4.3) 07/05/21 05:24 Baso % (Auto) 0.6 % (0.0-1.8) 07/05/21 05:24 Lymph # (Auto) 2.3 K/mm3 (1.2-5.4) 07/05/21 05:24 Williamson # (Auto) 0.5 K/mm3 (0.0-0.8) 07/05/21 05:24 Eos # (Auto) 0.1 K/mm3 (0.0-0.4) 07/05/21 05:24 Baso # (Auto) 0.0 K/mm3 (0.0-0.1) 07/05/21 05:24 Seg Neutrophils % 60.7 % (40.0-70.0) 07/05/21 05:24 Seg Neutrophils # 4.5 K/mm3 (1.8-7.7) 07/05/21 05:24 PT 13.2 Sec. (12.2-14.9) 07/05/21 05:24 INR 0.95 (0.87-1.13) 07/05/21 05:24 APTT 26.7 Sec. (24.2-36.6) 07/04/21 01:53 Thrombin Time 16.6 Sec. (15.1-19.6) 07/04/21 01:53 Sodium 140 mmol/L (137-145) 07/05/21 05:24 Potassium 3.9 mmol/L (3.6-5.0) 07/05/21 05:24 Chloride 106.4 mmol/L (98-107) 07/05/21 05:24 Carbon Dioxide 22 mmol/L (22-30) D 07/05/21 05:24 Anion Gap 16 mmol/L 07/05/21 05:24 BUN 13 mg/dL (9-20) 07/05/21 05:24 Creatinine 0.8 mg/dL (0.8-1.3) 07/05/21 05:24 Estimated GFR > 60 ml/min 07/05/21 05:24 BUN/Creatinine Ratio 16 % 07/05/21 05:24 Glucose 95 mg/dL (75-100) 07/05/21 05:24 POC Glucose 104 mg/dL (70-105) 07/04/21 01:48 Calcium 9.2 mg/dL (8.4-10.2) 07/05/21 05:24 Total Bilirubin 0.20 mg/dL (0.1-1.2) 07/04/21 01:53 AST 14 units/L (5-40) 07/04/21 01:53 ALT 16 units/L (7-56) 07/04/21 01:53 Alkaline Phosphatase 174 units/L (35-129) H 07/04/21 01:53 Total Creatine Kinase 69 units/L (55-170) 07/04/21 01:53 CK-MB (CK-2) 1.4 ng/mL (0.0-4.0) 07/04/21 01:53 CK-MB (CK-2) Rel Index 2.0 (0-4) 07/04/21 01:53 Troponin T < 0.010 ng/mL (0.00-0.029) 07/04/21 01:53 Total Protein 8.3 g/dL (6.3-8.2) H 07/04/21 01:53 Albumin 4.5 g/dL (3.9-5) 07/04/21 01:53 Albumin/Globulin Ratio 1.2 % 07/04/21 01:53 Triglycerides 120 mg/dL (2-149) 07/05/21 05:24 Cholesterol 117 mg/dL (50-199) 07/05/21 05:24 LDL Cholesterol Direct 61 mg/dL (50-130) 07/05/21 05:24 HDL Cholesterol 38 mg/dL (40-59) L 07/05/21 05:24 Cholesterol/HDL Ratio 3.07 % 07/05/21 05:24 Vitamin B12 345.1 pg/mL (211-911) 07/05/21 08:16 TSH 1.510 mlU/mL (0.270-4.200) 07/04/21 01:53 Urine Color Yellow (Yellow) 07/04/21 06:28 Urine Turbidity Clear (Clear) 07/04/21 06:28 Urine pH 5.0 (5.0-7.0) 07/04/21 06:28 Ur Specific [place] 1.014 (1.003-1.030) 07/04/21 06:28 Urine Protein <15 mg/dl mg/dL (Negative) 07/04/21 06:28 Urine Glucose (UA) Neg mg/dL (Negative) 07/04/21 06:28 Urine Ketones 20 mg/dL (Negative) 07/04/21 06:28 Urine Blood Sm (Negative) 07/04/21 06:28 Urine Nitrite Neg (Negative) 07/04/21 06:28 Urine Bilirubin Neg (Negative) 07/04/21 06:28 Urine Urobilinogen < 2.0 mg/dL (<2.0) 07/04/21 06:28 Ur Leukocyte Esterase Neg (Negative) 07/04/21 06:28 Urine WBC (Auto) 6.0 /HPF (0.0-6.0) 07/04/21 06:28 Urine RBC (Auto) 6.0 /HPF (0.0-6.0) 07/04/21 06:28 U Epithel Cells (Auto) 1.0 /HPF (0-13.0) 07/04/21 06:28 Urine Mucus Few /HPF 07/04/21 06:28 Urine Opiates Screen Presumptive negative 07/04/21 06:28 Urine Methadone Screen Presumptive negative 07/04/21 06:28 Ur Barbiturates Screen Presumptive negative 07/04/21 06:28 Ur Phencyclidine Scrn Presumptive negative 07/04/21 06:28 Ur Amphetamines Screen Presumptive negative 07/04/21 06:28 U Benzodiazepines Scrn Presumptive negative 07/04/21 06:28 Urine Cocaine Screen Presumptive negative 07/04/21 06:28 U Marijuana (THC) Screen Presumptive negative 07/04/21 06:28 Drugs of Abuse Note Disclamer 07/04/21 06:28 Plasma/Serum Alcohol < 0.01 % (0-0.07) 07/04/21 01:53 Active Medications - Current Medications Current Medications: Generic Name Dose Route Start Last Admin Trade Name Freq PRN Reason Stop Dose Admin Acetaminophen 650 mg 07/04/21 02:15 Acetaminophen 325 Mg Tab PO Q6H PRN Pain MILD(1-3)/Fever >100.5/LOVELACE Aspirin 325 mg 07/04/21 10:00 07/05/21 09:52 Aspirin 325 Mg Tab PO 325 mg QDAY HILARY Administration Atorvastatin Calcium 40 mg 07/04/21 22:00 07/05/21 00:01 Atorvastatin 40 Mg Tab PO 40 mg QHS HILARY Administration Bisacodyl 10 mg 07/04/21 03:28 Bisacodyl 10 Mg Rect Supp PA QDAY PRN Constipation Heparin Sodium (Porcine) 5,000 unit 07/04/21 06:00 07/05/21 15:06 Heparin 5,000 Unit/1 Ml Vial SUB-Q 5,000 unit Q8HR HILARY Administration Hydralazine HCl 10 mg 07/04/21 08:53 Hydralazine 20 Mg/1 Ml Inj IV Q4HR PRN Hypertension Isosorbide Mononitrate 60 mg 07/04/21 10:00 07/05/21 09:52 Isosorbide Mononitrate Er 60 Mg Tab PO 60 mg QDAY HILARY Administration Magnesium Hydroxide 30 ml 07/04/21 02:15 Magnesium Hydroxide (Mom) Oral Liqd Udc PO Q4H PRN Constipation Meclizine HCl 12.5 mg 07/05/21 13:03 Meclizine 12.5 Mg Tab PO Q12H PRN Vertigo Morphine Sulfate 2 mg 07/04/21 02:15 Morphine 2 Mg/1 Ml Inj IV Q4H PRN Pain, Moderate (4-6) Morphine Sulfate 4 mg 07/04/21 02:15 Morphine 4 Mg/1 Ml Inj IV Q4H PRN Pain , Severe (7-10) Ondansetron HCl 4 mg 07/04/21 02:15 Ondansetron 4 Mg/2 Ml Inj IV Q8H PRN Nausea And Vomiting Sodium Chloride 10 ml 07/04/21 10:00 07/05/21 09:52 Sodium Chloride 0.9% 10 Ml Flush Syringe IV 10 ml BID HILARY Administration Sodium Chloride 10 ml 07/04/21 02:15 Sodium Chloride 0.9% 10 Ml Flush Syringe IV PRN PRN LINE FLUSH Valsartan 80 mg 07/04/21 10:00 07/05/21 09:52 Valsartan 40 Mg Tab PO 80 mg BID HILARY Administration Nutrition/Malnutrition Assess - Dietary Evaluation Nutrition/Malnutrition Findings: Nutrition Notes Start: 07/04/21 16:44 Freq: Status: Active Protocol: Document 07/05/21 15:32 GB (Rec: 07/05/21 15:51 GB [email or web address]) Nutrition Notes Initial or Follow up Reassessment Current Diagnosis Hypertension Other Pertinent Diagnosis consult for life style change diet therapy education Current Diet cardiac Labs/Tests 07/05: mostly unremarkable Pertinent Medications NaCl Height 5 ft 10 in Weight 69.4 kg [place] Body Weight (kg) 75.45 BMI 21.9 Intake Prior to Admission Good Weight change and time frame 07/04 73.48 kg, 07/05 69.4 kg change of -4.082kg for -5.5% change Weight Status Appropriate Percent of energy/protein needs met: 75-100% meal intake meets 80% or greater of estimated energy needs. Burn Absent Trauma Absent GI Symptoms None Food Allergy No Skin Integrity/Comment no reported complications Current % PO Good (75-100%) Interpretation of Weight Loss (severe) >2% in 1 week #1 Nutrition Diagnosis Food and nutrition-related knowledge deficit Etiology HTN As Evidenced by Signs and Symptoms consult for lifestyle nutrition therapy education Is patient on ventilator? No Kcal/Kg value to use for calculation 30 Approximate Energy Requirements Using 2081 kcal/Kg Calculation Used for Recommendations Kcal/kg Additional Notes Protein: 1-1.2 g/k-83g Fluids: 1 ml/kcal or per MD Nutrition Intervention Change Diet Order: continue with current diet Nutrition Support: n/a Add Supplement/Snack (indicate name/kcal Offer snacks throughout day. /protein ) Education Handouts Provided NCM: Cardiac-TLC nutrition therapy Goal #1 po intake of meals to continue at 75% or greater daily during LOS Goal #2 Weight to mainain within +/-5% current weight during LOS Goal #3 Acceptance of nutrition education packet. Follow-Up By: 07/12/21
[2021-07-05] MEDS: MECLIZINE 12.5 MG TAB PO PRN (16:52)
--- NOTE | 2021-07-06 02:18 | Vascular Lab Report ---
DUPLEX DOPPLER ULTRASOUND CAROTID, BILATERAL INDICATION / CLINICAL INFORMATION: stroke. COMPARISON: None available. FINDINGS: RIGHT CAROTID: - PLAQUE ESTIMATE (%): < 50% - CCA velocity: 114 cm/sec. - ICA peak systolic velocity: 100 cm/sec. - ICA/CCA PSV Ratio: Less than 2 Right Vertebral Artery: Antegrade flow. LEFT CAROTID: - PLAQUE ESTIMATE: < 50% - CCA velocity: 137 cm/sec. - ICA peak systolic velocity: 110 cm/sec. - ICA/CCA PSV Ratio: Less than 2 Left Vertebral Artery: Antegrade flow. IMPRESSION: 1. Right Internal Carotid Artery: Less than 50% diameter stenosis. 2. Left Internal Carotid Artery: Less than 50% diameter stenosis. Velocity criteria are extrapolated from diameter data as defined by the Society of Radiologists in Ul trasound Consensus Conference, Radiology 2003; 229;340-346. NO STENOSIS (NORMAL) * Plaque = none; ICA PSV < 125 cm/sec; ICA/CCA PSV Ratio < 2.0 <50% STENOSIS * Plaque < 50%; ICA PSV < 125 cm/sec; ICA/CCA PSV Ratio < 2.0 50-69% STENOSIS * Plaque > 50%; ICA PSV = 125-230 cm/sec; ICA/CCA PSV Ratio = 2.0-4.0 >70% BUT <100% STENOSIS * Plaque > 50%; ICA PSV > 230 cm/sec; ICA/CCA PSV Ratio > 4.0 NEAR OCCLUSION * Plaque = visible lumen; ICA PSV = high/low/none; ICA/CCA PSV Ratio = variable TOTAL OCCLUSION * Plaque = no lumen; ICA PSV = none; ICA/CCA PSV Ratio = N/A Signer Name: Kamron Drummond MD Signed: 07/06/2021 2:14 AM Workstation Name: [id number]
[2021-07-06] MEDS: HEPARIN 5,000 UNIT/1 ML VIAL SUB-Q SCH ×3 (06:11→22:04)
--- NOTE | 2021-07-06 09:14 | Discharge Summary ---
Providers - Providers Date of Admission: 07/04/21 13:15 Date of discharge: 07/06/21 Attending physician: EARNEST HILLMAN MD 07/04/21 02:15 Consult to Dietitian/Nutrition [CONS] Routine Physician Instructions: Reason For Exam: Reason for Consult: Diet education 07/04/21 03:28 Consult to Physician [CONS] Routine Comment: Consulting Provider: SOCORRO CORTEZ Physician Instructions: Reason For Exam: DYSARTHRIA R/O CVA 07/04/21 03:29 Occupational Therapy Evaluate and Treat [CONS] Routine Comment: Reason For Exam: Neuro deficits Physical Therapy Evaluation and Treat [CONS] Routine Comment: Reason For Exam: Neuro deficits 07/04/21 03:30 Speech Therapy Evaluation and Treat [CONS] Routine Reason For Exam: swallow eval 07/05/21 08:12 Consult to Case Management [CONS] Routine Services Needed at Discharge: Physical Therapy 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 Physical therapy recommend acute rehab. Set up for rehab will be challenging as patient is , currently working with case management for outpatient set up for [facility] PT services. MRI C-spine ordered by neurology demonstrates multilevel degenerative changes and foraminal narrowing. We will continue supportive care. 07/06/2021: Patient dizziness is improved with Antivert. D escalated antihypertensive therapy. Goal 150/90 physical therapy currently being set up by in-house PT and case management team. Plan is for discharge potentially today. Patient prescriptions for aspirin, atorvastatin, Imdur, valsartan, Antivert were transmitted to patient pharmacy. He was advised to follow-up with his primary care doctor in 3 to 5 days. Assessment and plan (1) CVA (cerebral vascular accident) Current Visit: Yes Status: Acute Qualifiers: CVA mechanism: unspecified Qualified Code(s): I63.9 - Cerebral infarction, unspecified Plan to address problem: Patient admitted and placed on telemetry. We will start patient on daily aspirin and statin. Patient will be scheduled for MRI of the brain. Consult placed to neurology for evaluation and recommendation. Aspirin /statin (2) Hypertensive urgency, malignant Current Visit: No Status: Acute Plan to address problem: We place patient on antihypertensive as needed. We will monitor vital signs closely. (3) Recurrent positional vertigo Current Visit: No Status: Acute Plan to address problem: Per neurology etiology is unclear avoid overtreating blood pressure, will continue to monitor Antivert as needed (4) Tobacco use disorder Current Visit: No Status: Acute Plan to address problem: Patient counseled on quitting tobacco abuse. We offer nicotine patch as needed. (5) DVT prophylaxis Current Visit: No Status: Acute Plan to address problem: Patient placed on subcutaneous heparin. (6) Full code status Current Visit: No Status: Acute Plan to address problem: Patient is full code. Disposition: 03 [facility] Final Discharge Diagnosis (Prints w/discharge instructions): acute ischemic CVA Time spent for discharge: 35 Core Measure Documentation - Palliative Care Palliative Care/ Comfort Measures: Not Applicable - Core Measures Any of the following diagnoses?: stroke - Stroke Discharge Requirements Statin for LDL = or >70 mg/dl on DC: Yes Anticoag for atrial fib/atrial flutter: No Reason for no anticoag for AF/F on DC: Not Indicated Antithrombotic for ischemic stroke: Yes Exam - Constitutional Vitals: Temp Pulse Resp BP Pulse Ox 98.7 F 66 18 142/68 99 07/06/21 07:53 07/06/21 07:53 07/06/21 07:53 07/06/21 07:53 07/06/21 07:53 Plan Activity: advance as tolerated Weight Bearing Status: Weight Bear as Tolerated Diet: low fat, low cholesterol, advance as tolerated Follow up with: PRIMARY CARE, [Primary Care Provider] - 7 Days Prescriptions: AtorvaSTATin [Lipitor] 40 mg PO QHS 30 Days #30 tablet Meclizine [Antivert] 12.5 mg PO Q12H PRN 30 Days #60 tablet PRN Reason: Vertigo Aspirin 325 mg PO QDAY 30 Days #30 tablet Valsartan [Diovan] 80 mg PO BID 30 Days #60 tablet ISOSORBIDE MONOnitrate [Imdur ER] 60 mg PO QDAY 30 Days #30 tablet Other Discharge Orders: Physicial Therapy (Amb) Location: None Selected
[2021-07-06] MEDS: VALSARTAN 40 MG TAB PO SCH ×2 (10:42→22:04)
[2021-07-06] MEDS: ASPIRIN 325 MG TAB PO SCH (10:42)
--- NOTE | 2021-07-06 13:28 | Progress Note ---
Assessment and Plan Assessment and Plan - Patient Problems # CVA (cerebral vascular accident) -this is 61 ys old male with hx of HTN not on any medications presented with a new onset of right side weakness and unsteady gait -he is with hx of right lazy eye -Ct brain is unremarkable -CTA brain and neck are remarkable for Intra cranial sclerosis right and left Cavernous segment ICA and right vertebral a. -MRI brain is suggestive of acute left corna radiata infarct -echo is remarkable for Ef#50-55% -A1C pending and LDL #61 -Started on ASA 325 mg and lipitor 40 mg -Pt/ST evaluate # Recurrent vertigo positional -no sign of central process , doubt vertigo mostly dizziness !!!! -no hx of vertigo before -suggest antivert prn and -check for orthostatic changes is positive with decrease BP on standing HR not done -consider repeat MRI brain as needed -Avoid aggressive BP control -Hydration # Hypertensive urgency, malignant -We place patient on antihypertensive as needed. -We will monitor vital signs closely. -now BP is <120/80 avoid aggressive BP control and hydrate !! # Brisk reflexes upper and lower with no clonus no lopez sign -b12 WNL -MRI cervical showed lateral stenosis with no central process # Tobacco use disorder Patient counseled on quitting tobacco abuse. We offer nicotine patch as needed. # DVT prophylaxis Patient placed on subcutaneous heparin. # Full code status Patient is full code. PLAN 1- avoid aggressive BP control mainatin around 150/80 2- Hydration 3- check for orthostatic changes is noted POSITIVE 4- stop antivert 5- maintain ASA and Lipitor 6- Pt therapy 7- Follow up with neurology and PCP will sign off Subjective Principal diagnosis: right side weakness and vertigo today Interval history: according to pt. weakness is better he is complaining of vertigo/ dizziness is better today denied any diplopia or swallowing difficulty orthostatic changes is positive--HR not checked only BP Objective - Vital Sign Vital Signs - 12hr 07/06/21 07/06/21 07/06/21 04:05 05:00 07:53 Temperature 97.9 F 98.7 F Pulse Rate 65 66 Pulse Rate [ 79 Apical] Pulse Rate [ 79 From Monitor] Respiratory 16 17 18 Rate Blood Pressure 160/72 142/68 O2 Sat by Pulse 98 97 99 Oximetry 07/06/21 11:00 Temperature Pulse Rate 68 Pulse Rate [ Apical] Pulse Rate [ From Monitor] Respiratory Rate Blood Pressure O2 Sat by Pulse 97 Oximetry - General Apperance Constitutional: comfortable - EENT EENT: PERRL, mucous membranes moist - Respiratory Respiratory: chest non-tender, lungs clear, rhonchi - Cardiovascular Cardiovascular: regular rate, normal S1, normal S2 Extremities: no peripheral edema bilat, no clubbing, cyanosis - Gastrointestinal Gastrointestinal: normoactive bowel sounds - Integumentary Integumentary: normal - Neurologic Cranial nerve examination: PERRL, EOMI, intact (lazy right eye and right facial droop , decrese vision right eye) Detailed motor examination: other (right upper4-/5 right lower4/5 gait is unsteady slightly) - Laboratory Findings CBC and BMP: 07/05/21 05:24 07/05/21 05:24 Abnormal Lab Findings: Abnormal Labs 07/04/21 07/04/21 07/05/21 01:53 01:53 05:24 RBC 6.66 H 5.98 H Hgb 17.1 H Hct 50.7 H MCV 76 L 76 L MCH 26 L 25 L RDW 15.6 H 15.6 H Seg Neutrophils % 78.1 H Seg Neutrophils # 8.2 H Glucose 117 H Alkaline Phosphatase 174 H Total Protein 8.3 H HDL Cholesterol 07/05/21 05:24 RBC Hgb Hct MCV MCH RDW Seg Neutrophils % Seg Neutrophils # Glucose Alkaline Phosphatase Total Protein HDL Cholesterol 38 L
[2021-07-06] MEDS: MECLIZINE 12.5 MG TAB PO PRN (22:04)
[2021-07-07] MEDS: HEPARIN 5,000 UNIT/1 ML VIAL SUB-Q SCH ×3 (06:39→21:51)
--- NOTE | 2021-07-07 09:18 | Progress Note ---
Assessment and Plan Assessment and plan: Hospital course to date 07/05/2021: Patient still remains dizzy when trying to ambulate. Physical therap y recommend acute rehab. Set up for rehab will be challenging as patient is , currently working with case management for outpatient set up for [facility] PT services. MRI C-spine ordered by neurology demonstrates multilevel degenerative changes and foraminal narrowing. We will continue supportive care. 07/07/2021: Medical clear for d/c. Awaiting PT/CM set up for OP physical therapy. Assessment and plan (1) CVA (cerebral vascular accident) Current Visit: Yes Status: Acute Qualifiers: CVA mechanism: unspecified Qualified Code(s): I63.9 - Cerebral infarction, unspecified Plan to address problem: Patient admitted and placed on telemetry. We will start patient on daily aspirin and statin. Patient will be scheduled for MRI of the brain. Consult placed to neurology for evaluation and recommendation. Aspirin /statin (2) Hypertensive urgency, malignant Current Visit: No Status: Acute Plan to address problem: We place patient on antihypertensive as needed. We will monitor vital signs closely. (3) Recurrent positional vertigo Current Visit: No Status: Acute Plan to address problem: Per neurology etiology is unclear avoid overtreating blood pressure, will continue to monitor Antivert as needed (4) Tobacco use disorder Current Visit: No Status: Acute Plan to address problem: Patient counseled on quitting tobacco abuse. We offer nicotine patch as needed. (5) DVT prophylaxis Current Visit: No Status: Acute Plan to address problem: Patient placed on subcutaneous heparin. (6) Full code status Current Visit: No Status: Acute Plan to address problem: Patient is full code. History Interval history: No complaints this AM. Hospitalist Physical - Physical exam Narrative exam: - General Apperance Constitutional: comfortable, dizzy when walking - EENT EENT: PERRL, mucous membranes moist - Respiratory Respiratory: lungs clear, rhonchi - Cardiovascular Cardiovascular: regular rate, normal S1, normal S2 Extremities: no peripheral edema bilat, no clubbing, cyanosis - Gastrointestinal Gastrointestinal: normoactive bowel sounds - Integumentary Integumentary: normal - Neurologic Cranial nerve examination: PERRL, EOMI, other (lazy right eye with decreased vision , slight right facial droop) Detailed motor examination: other (right side pronator drift , gait not done also noted slight dysmetria right upper) - Constitutional Vitals: Temp Pulse Resp BP Pulse Ox 97.9 F 60 18 147/63 99 07/07/21 03:38 07/07/21 04:33 07/07/21 03:38 07/07/21 04:33 07/07/21 04:33 General appearance: Present: no acute distress, mild distress, well-nourished, disheveled HEART Score - HEART Score Troponin: Troponin T < 0.010 ng/mL (0.00-0.029) 07/04/21 01:53 Results - Labs CBC & Chem 7: 07/05/21 05:24 07/05/21 05:24 Labs: Laboratory Last Values WBC 7.4 K/mm3 (4.5-11.0) 07/05/21 05:24 RBC 5.98 M/mm3 (3.65-5.03) H 07/05/21 05:24 Hgb 15.2 gm/dl (11.8-15.2) 07/05/21 05:24 Hct 45.5 % (35.5-45.6) 07/05/21 05:24 MCV 76 fl (84-94) L 07/05/21 05:24 MCH 25 pg (28-32) L 07/05/21 05:24 MCHC 33 % (32-34) 07/05/21 05:24 RDW 15.6 % (13.2-15.2) H 07/05/21 05:24 Plt Count 196 K/mm3 (140-440) 07/05/21 05:24 Lymph % (Auto) 31.0 % (13.4-35.0) 07/05/21 05:24 [place] % (Auto) 6.8 % (0.0-7.3) 07/05/21 05:24 Eos % (Auto) 0.9 % (0.0-4.3) 07/05/21 05:24 Baso % (Auto) 0.6 % (0.0-1.8) 07/05/21 05:24 Lymph # (Auto) 2.3 K/mm3 (1.2-5.4) 07/05/21 05:24 [place] # (Auto) 0.5 K/mm3 (0.0-0.8) 07/05/21 05:24 Eos # (Auto) 0.1 K/mm3 (0.0-0.4) 07/05/21 05:24 Baso # (Auto) 0.0 K/mm3 (0.0-0.1) 07/05/21 05:24 Seg Neutrophils % 60.7 % (40.0-70.0) 07/05/21 05:24 Seg Neutrophils # 4.5 K/mm3 (1.8-7.7) 07/05/21 05:24 PT 13.2 Sec. (12.2-14.9) 07/05/21 05:24 INR 0.95 (0.87-1.13) 07/05/21 05:24 APTT 26.7 Sec. (24.2-36.6) 07/04/21 01:53 Thrombin Time 16.6 Sec. (15.1-19.6) 07/04/21 01:53 Sodium 140 mmol/L (137-145) 07/05/21 05:24 Potassium 3.9 mmol/L (3.6-5.0) 07/05/21 05:24 Chloride 106.4 mmol/L (98-107) 07/05/21 05:24 Carbon Dioxide 22 mmol/L (22-30) D 07/05/21 05:24 Anion Gap 16 mmol/L 07/05/21 05:24 BUN 13 mg/dL (9-20) 07/05/21 05:24 Creatinine 0.8 mg/dL (0.8-1.3) 07/05/21 05:24 Estimated GFR > 60 ml/min 07/05/21 05:24 BUN/Creatinine Ratio 16 % 07/05/21 05:24 Glucose 95 mg/dL (75-100) 07/05/21 05:24 POC Glucose 104 mg/dL (70-105) 07/04/21 01:48 Calcium 9.2 mg/dL (8.4-10.2) 07/05/21 05:24 Total Bilirubin 0.20 mg/dL (0.1-1.2) 07/04/21 01:53 AST 14 units/L (5-40) 07/04/21 01:53 ALT 16 units/L (7-56) 07/04/21 01:53 Alkaline Phosphatase 174 units/L (35-129) H 07/04/21 01:53 Total Creatine Kinase 69 units/L (55-170) 07/04/21 01:53 CK-MB (CK-2) 1.4 ng/mL (0.0-4.0) 07/04/21 01:53 CK-MB (CK-2) Rel Index 2.0 (0-4) 07/04/21 01:53 Troponin T < 0.010 ng/mL (0.00-0.029) 07/04/21 01:53 Total Protein 8.3 g/dL (6.3-8.2) H 07/04/21 01:53 Albumin 4.5 g/dL (3.9-5) 07/04/21 01:53 Albumin/Globulin Ratio 1.2 % 07/04/21 01:53 Triglycerides 120 mg/dL (2-149) 07/05/21 05:24 Cholesterol 117 mg/dL (50-199) 07/05/21 05:24 LDL Cholesterol Direct 61 mg/dL (50-130) 07/05/21 05:24 HDL Cholesterol 38 mg/dL (40-59) L 07/05/21 05:24 Cholesterol/HDL Ratio 3.07 % 07/05/21 05:24 Vitamin B12 345.1 pg/mL (211-911) 07/05/21 08:16 TSH 1.510 mlU/mL (0.270-4.200) 07/04/21 01:53 Urine Color Yellow (Yellow) 07/04/21 06:28 Urine Turbidity Clear (Clear) 07/04/21 06:28 Urine pH 5.0 (5.0-7.0) 07/04/21 06:28 Ur Specific [place] 1.014 (1.003-1.030) 07/04/21 06:28 Urine Protein <15 mg/dl mg/dL (Negative) 07/04/21 06:28 Urine Glucose (UA) Neg mg/dL (Negative) 07/04/21 06:28 Urine Ketones 20 mg/dL (Negative) 07/04/21 06:28 Urine Blood Sm (Negative) 07/04/21 06:28 Urine Nitrite Neg (Negative) 07/04/21 06:28 Urine Bilirubin Neg (Negative) 07/04/21 06:28 Urine Urobilinogen < 2.0 mg/dL (<2.0) 07/04/21 06:28 Ur Leukocyte Esterase Neg (Negative) 07/04/21 06:28 Urine WBC (Auto) 6.0 /HPF (0.0-6.0) 07/04/21 06:28 Urine RBC (Auto) 6.0 /HPF (0.0-6.0) 07/04/21 06:28 U Epithel Cells (Auto) 1.0 /HPF (0-13.0) 07/04/21 06:28 Urine Mucus Few /HPF 07/04/21 06:28 Urine Opiates Screen Presumptive negative 07/04/21 06:28 Urine Methadone Screen Presumptive negative 07/04/21 06:28 Ur Barbiturates Screen Presumptive negative 07/04/21 06:28 Ur Phencyclidine Scrn Presumptive negative 07/04/21 06:28 Ur Amphetamines Screen Presumptive negative 07/04/21 06:28 U Benzodiazepines Scrn Presumptive negative 07/04/21 06:28 Urine Cocaine Screen Presumptive negative 07/04/21 06:28 U Marijuana (THC) Screen Presumptive negative 07/04/21 06:28 Drugs of Abuse Note Disclamer 07/04/21 06:28 Plasma/Serum Alcohol < 0.01 % (0-0.07) 07/04/21 01:53 Mitchell/IV: Voiding Method Urinal Active Medications - Current Medications Current Medications: Generic Name Dose Route Start Last Admin Trade Name Freq PRN Reason Stop Dose Admin Acetaminophen 650 mg 07/04/21 02:15 Acetaminophen 325 Mg Tab PO Q6H PRN Pain MILD(1-3)/Fever >100.5/LOVELACE Aspirin 325 mg 07/04/21 10:00 07/06/21 10:42 Aspirin 325 Mg Tab PO 325 mg QDAY HILARY Administration Atorvastatin Calcium 40 mg 07/04/21 22:00 07/06/21 22:04 Atorvastatin 40 Mg Tab PO 40 mg QHS HILARY Administration Bisacodyl 10 mg 07/04/21 03:28 Bisacodyl 10 Mg Rect Supp MA QDAY PRN Constipation Heparin Sodium (Porcine) 5,000 unit 07/04/21 06:00 07/07/21 06:39 Heparin 5,000 Unit/1 Ml Vial SUB-Q 5,000 unit Q8HR HILARY Administration Hydralazine HCl 10 mg 07/04/21 08:53 Hydralazine 20 Mg/1 Ml Inj IV Q4HR PRN Hypertension Isosorbide Mononitrate 60 mg 07/04/21 10:00 07/06/21 10:42 Isosorbide Mononitrate Er 60 Mg Tab PO 60 mg QDAY HILARY Administration Magnesium Hydroxide 30 ml 07/04/21 02:15 Magnesium Hydroxide (Mom) Oral Liqd Udc PO Q4H PRN Constipation Meclizine HCl 12.5 mg 07/05/21 13:03 07/06/21 22:04 Meclizine 12.5 Mg Tab PO 12.5 mg Q12H PRN Administration Vertigo Morphine Sulfate 2 mg 07/04/21 02:15 Morphine 2 Mg/1 Ml Inj IV Q4H PRN Pain, Moderate (4-6) Morphine Sulfate 4 mg 07/04/21 02:15 Morphine 4 Mg/1 Ml Inj IV Q4H PRN Pain , Severe (7-10) Ondansetron HCl 4 mg 07/04/21 02:15 Ondansetron 4 Mg/2 Ml Inj IV Q8H PRN Nausea And Vomiting Sodium Chloride 10 ml 07/04/21 10:00 07/06/21 22:04 Sodium Chloride 0.9% 10 Ml Flush Syringe IV 10 ml BID HILARY Administration Sodium Chloride 10 ml 07/04/21 02:15 Sodium Chloride 0.9% 10 Ml Flush Syringe IV PRN PRN LINE FLUSH Valsartan 80 mg 07/04/21 10:00 07/06/21 22:04 Valsartan 40 Mg Tab PO 80 mg BID HILARY Administration Nutrition/Malnutrition Assess - Dietary Evaluation Nutrition/Malnutrition Findings: Nutrition Notes Start: 07/04/21 16:44 Freq: Status: Active Protocol: Document 07/05/21 15:32 GB (Rec: 07/05/21 15:51 GB [email or web address]) Nutrition Notes Initial or Follow up Reassessment Current Diagnosis Hypertension Other Pertinent Diagnosis consult for life style change diet therapy education Current Diet cardiac Labs/Tests 07/05: mostly unremarkable Pertinent Medications NaCl Height 5 ft 10 in Weight 69.4 kg [place] Body Weight (kg) 75.45 BMI 21.9 Intake Prior to Admission Good Weight change and time frame 07/04 73.48 kg, 07/05 69.4 kg change of -4.082kg for -5.5% change Weight Status Appropriate Percent of energy/protein needs met: 75-100% meal intake meets 80% or greater of estimated energy needs. Burn Absent Trauma Absent GI Symptoms None Food Allergy No Skin Integrity/Comment no reported complications Current % PO Good (75-100%) Interpretation of Weight Loss (severe) >2% in 1 week #1 Nutrition Diagnosis Food and nutrition-related knowledge deficit Etiology HTN As Evidenced by Signs and Symptoms consult for lifestyle nutrition therapy education Is patient on ventilator? No Kcal/Kg value to use for calculation 30 Approximate Energy Requirements Using 2081 kcal/Kg Calculation Used for Recommendations Kcal/kg Additional Notes Protein: 1-1.2 g/k-83g Fluids: 1 ml/kcal or per MD Nutrition Intervention Change Diet Order: continue with current diet Nutrition Support: n/a Add Supplement/Snack (indicate name/kcal Offer snacks throughout day. /protein ) Education Handouts Provided NCM: Cardiac-TLC nutrition therapy Goal #1 po intake of meals to continue at 75% or greater daily during LOS Goal #2 Weight to [place] within +/-5% current weight during LOS Goal #3 Acceptance of nutrition education packet. Follow-Up By: 07/12/21
[2021-07-07] MEDS: VALSARTAN 40 MG TAB PO SCH ×2 (13:30→21:51)
[2021-07-07] MEDS: ASPIRIN 325 MG TAB PO SCH (13:30)
[2021-07-08] MEDS: HEPARIN 5,000 UNIT/1 ML VIAL SUB-Q SCH (06:28)
[2021-07-08] MEDS: VALSARTAN 40 MG TAB PO SCH (11:05)
[2021-07-08] MEDS: ASPIRIN 325 MG TAB PO SCH (11:05)
--- NOTE | 2021-07-08 11:24 | Progress Note ---
Assessment and Plan Assessment and plan: Hospital course to date 07/05/2021: Patient still remains dizzy when trying to ambulate. Physical therap y recommend acute rehab. Set up for rehab will be challenging as patient is , currently working with case management for outpatient set up for [facility] PT services. MRI C-spine ordered by neurology demonstrates multilevel degenerative changes and foraminal narrowing. We will continue supportive care. 07/07/2021: Medical clear for d/c. Awaiting PT/CM set up for OP physical therapy. 07/08/21: No complaints. Medically clear for d/c. PT/CM has set up OP PT services. Rolling walker arranged. Patient should be discharged today. Assessment and plan (1) CVA (cerebral vascular accident) Current Visit: Yes Status: Acute Qualifiers: CVA mechanism: unspecified Qualified Code(s): I63.9 - Cerebral infarction, unspecified Plan to address problem: Patient admitted and placed on telemetry. We will start patient on daily aspirin and statin. Patient will be scheduled for MRI of the brain. Consult placed to neurology for evaluation and recommendation. Aspirin /statin (2) Hypertensive urgency, malignant Current Visit: No Status: Acute Plan to address problem: We place patient on antihypertensive as needed. We will monitor vital signs closely. (3) Recurrent positional vertigo Current Visit: No Status: Acute Plan to address problem: Per neurology etiology is unclear avoid overtreating blood pressure, will continue to monitor Antivert as needed (4) Tobacco use disorder Current Visit: No Status: Acute Plan to address problem: Patient counseled on quitting tobacco abuse. We offer nicotine patch as needed. (5) DVT prophylaxis Current Visit: No Status: Acute Plan to address problem: Patient placed on subcutaneous heparin. (6) Full code status Current Visit: No Status: Acute Plan to address problem: Patient is full code. History Interval history: No complaints this AM. Hospitalist Physical - Physical exam Narrative exam: - General Apperance Constitutional: comfortable, dizzy when walking - EENT EENT: PERRL, mucous membranes moist - Respiratory Respiratory: lungs clear, rhonchi - Cardiovascular Cardiovascular: regular rate, normal S1, normal S2 Extremities: no peripheral edema bilat, no clubbing, cyanosis - Gastrointestinal Gastrointestinal: normoactive bowel sounds - Integumentary Integumentary: normal - Neurologic Cranial nerve examination: PERRL, EOMI, other (lazy right eye with decreased vision , slight right facial droop) Detailed motor examination: other (right side pronator drift , gait not done also noted slight dysmetria right upper) - Constitutional Vitals: Temp Pulse Resp BP Pulse Ox 97.9 F 60 18 154/73 98 07/08/21 07:57 07/08/21 07:57 07/08/21 07:57 07/08/21 07:57 07/08/21 07:57 General appearance: Present: no acute distress, mild distress, well-nourished, disheveled HEART Score - HEART Score Troponin: Troponin T < 0.010 ng/mL (0.00-0.029) 07/04/21 01:53 Results - Labs CBC & Chem 7: 07/05/21 05:24 07/05/21 05:24 Labs: Laboratory Last Values WBC 7.4 K/mm3 (4.5-11.0) 07/05/21 05:24 RBC 5.98 M/mm3 (3.65-5.03) H 07/05/21 05:24 Hgb 15.2 gm/dl (11.8-15.2) 07/05/21 05:24 Hct 45.5 % (35.5-45.6) 07/05/21 05:24 MCV 76 fl (84-94) L 07/05/21 05:24 MCH 25 pg (28-32) L 07/05/21 05:24 MCHC 33 % (32-34) 07/05/21 05:24 RDW 15.6 % (13.2-15.2) H 07/05/21 05:24 Plt Count 196 K/mm3 (140-440) 07/05/21 05:24 Lymph % (Auto) 31.0 % (13.4-35.0) 07/05/21 05:24 [place] % (Auto) 6.8 % (0.0-7.3) 07/05/21 05:24 Eos % (Auto) 0.9 % (0.0-4.3) 07/05/21 05:24 Baso % (Auto) 0.6 % (0.0-1.8) 07/05/21 05:24 Lymph # (Auto) 2.3 K/mm3 (1.2-5.4) 07/05/21 05:24 [place] # (Auto) 0.5 K/mm3 (0.0-0.8) 07/05/21 05:24 Eos # (Auto) 0.1 K/mm3 (0.0-0.4) 07/05/21 05:24 Baso # (Auto) 0.0 K/mm3 (0.0-0.1) 07/05/21 05:24 Seg Neutrophils % 60.7 % (40.0-70.0) 07/05/21 05:24 Seg Neutrophils # 4.5 K/mm3 (1.8-7.7) 07/05/21 05:24 PT 13.2 Sec. (12.2-14.9) 07/05/21 05:24 INR 0.95 (0.87-1.13) 07/05/21 05:24 APTT 26.7 Sec. (24.2-36.6) 07/04/21 01:53 Thrombin Time 16.6 Sec. (15.1-19.6) 07/04/21 01:53 Sodium 140 mmol/L (137-145) 07/05/21 05:24 Potassium 3.9 mmol/L (3.6-5.0) 07/05/21 05:24 Chloride 106.4 mmol/L (98-107) 07/05/21 05:24 Carbon Dioxide 22 mmol/L (22-30) D 07/05/21 05:24 Anion Gap 16 mmol/L 07/05/21 05:24 BUN 13 mg/dL (9-20) 07/05/21 05:24 Creatinine 0.8 mg/dL (0.8-1.3) 07/05/21 05:24 Estimated GFR > 60 ml/min 07/05/21 05:24 BUN/Creatinine Ratio 16 % 07/05/21 05:24 Glucose 95 mg/dL (75-100) 07/05/21 05:24 POC Glucose 104 mg/dL (70-105) 07/04/21 01:48 Calcium 9.2 mg/dL (8.4-10.2) 07/05/21 05:24 Total Bilirubin 0.20 mg/dL (0.1-1.2) 07/04/21 01:53 AST 14 units/L (5-40) 07/04/21 01:53 ALT 16 units/L (7-56) 07/04/21 01:53 Alkaline Phosphatase 174 units/L (35-129) H 07/04/21 01:53 Total Creatine Kinase 69 units/L (55-170) 07/04/21 01:53 CK-MB (CK-2) 1.4 ng/mL (0.0-4.0) 07/04/21 01:53 CK-MB (CK-2) Rel Index 2.0 (0-4) 07/04/21 01:53 Troponin T < 0.010 ng/mL (0.00-0.029) 07/04/21 01:53 Total Protein 8.3 g/dL (6.3-8.2) H 07/04/21 01:53 Albumin 4.5 g/dL (3.9-5) 07/04/21 01:53 Albumin/Globulin Ratio 1.2 % 07/04/21 01:53 Triglycerides 120 mg/dL (2-149) 07/05/21 05:24 Cholesterol 117 mg/dL (50-199) 07/05/21 05:24 LDL Cholesterol Direct 61 mg/dL (50-130) 07/05/21 05:24 HDL Cholesterol 38 mg/dL (40-59) L 07/05/21 05:24 Cholesterol/HDL Ratio 3.07 % 07/05/21 05:24 Vitamin B12 345.1 pg/mL (211-911) 07/05/21 08:16 TSH 1.510 mlU/mL (0.270-4.200) 07/04/21 01:53 Urine Color Yellow (Yellow) 07/04/21 06:28 Urine Turbidity Clear (Clear) 07/04/21 06:28 Urine pH 5.0 (5.0-7.0) 07/04/21 06:28 Ur Specific [place] 1.014 (1.003-1.030) 07/04/21 06:28 Urine Protein <15 mg/dl mg/dL (Negative) 07/04/21 06:28 Urine Glucose (UA) Neg mg/dL (Negative) 07/04/21 06:28 Urine Ketones 20 mg/dL (Negative) 07/04/21 06:28 Urine Blood Sm (Negative) 07/04/21 06:28 Urine Nitrite Neg (Negative) 07/04/21 06:28 Urine Bilirubin Neg (Negative) 07/04/21 06:28 Urine Urobilinogen < 2.0 mg/dL (<2.0) 07/04/21 06:28 Ur Leukocyte Esterase Neg (Negative) 07/04/21 06:28 Urine WBC (Auto) 6.0 /HPF (0.0-6.0) 07/04/21 06:28 Urine RBC (Auto) 6.0 /HPF (0.0-6.0) 07/04/21 06:28 U Epithel Cells (Auto) 1.0 /HPF (0-13.0) 07/04/21 06:28 Urine Mucus Few /HPF 07/04/21 06:28 Urine Opiates Screen Presumptive negative 07/04/21 06:28 Urine Methadone Screen Presumptive negative 07/04/21 06:28 Ur Barbiturates Screen Presumptive negative 07/04/21 06:28 Ur Phencyclidine Scrn Presumptive negative 07/04/21 06:28 Ur Amphetamines Screen Presumptive negative 07/04/21 06:28 U Benzodiazepines Scrn Presumptive negative 07/04/21 06:28 Urine Cocaine Screen Presumptive negative 07/04/21 06:28 U Marijuana (THC) Screen Presumptive negative 07/04/21 06:28 Drugs of Abuse Note Disclamer 07/04/21 06:28 Plasma/Serum Alcohol < 0.01 % (0-0.07) 07/04/21 01:53 Mitchell/IV: Voiding Method Urinal Active Medications - Current Medications Current Medications: Generic Name Dose Route Start Last Admin Trade Name Freq PRN Reason Stop Dose Admin Acetaminophen 650 mg 07/04/21 02:15 Acetaminophen 325 Mg Tab PO Q6H PRN Pain MILD(1-3)/Fever >100.5/LOVELACE Aspirin 325 mg 07/04/21 10:00 07/08/21 11:05 Aspirin 325 Mg Tab PO 325 mg QDAY HILARY Administration Atorvastatin Calcium 40 mg 07/04/21 22:00 07/07/21 21:52 Atorvastatin 40 Mg Tab PO 40 mg QHS HILARY Administration Bisacodyl 10 mg 07/04/21 03:28 Bisacodyl 10 Mg Rect Supp SD QDAY PRN Constipation Heparin Sodium (Porcine) 5,000 unit 07/04/21 06:00 07/08/21 06:28 Heparin 5,000 Unit/1 Ml Vial SUB-Q 5,000 unit Q8HR HILARY Administration Hydralazine HCl 10 mg 07/04/21 08:53 Hydralazine 20 Mg/1 Ml Inj IV Q4HR PRN Hypertension Isosorbide Mononitrate 60 mg 07/04/21 10:00 07/08/21 11:05 Isosorbide Mononitrate Er 60 Mg Tab PO 60 mg QDAY HILARY Administration Magnesium Hydroxide 30 ml 07/04/21 02:15 Magnesium Hydroxide (Mom) Oral Liqd Udc PO Q4H PRN Constipation Meclizine HCl 12.5 mg 07/05/21 13:03 07/06/21 22:04 Meclizine 12.5 Mg Tab PO 12.5 mg Q12H PRN Administration Vertigo Morphine Sulfate 2 mg 07/04/21 02:15 Morphine 2 Mg/1 Ml Inj IV Q4H PRN Pain, Moderate (4-6) Morphine Sulfate 4 mg 07/04/21 02:15 Morphine 4 Mg/1 Ml Inj IV Q4H PRN Pain , Severe (7-10) Ondansetron HCl 4 mg 07/04/21 02:15 Ondansetron 4 Mg/2 Ml Inj IV Q8H PRN Nausea And Vomiting Sodium Chloride 10 ml 07/04/21 10:00 07/08/21 11:05 Sodium Chloride 0.9% 10 Ml Flush Syringe IV 10 ml BID HILARY Administration Sodium Chloride 10 ml 07/04/21 02:15 Sodium Chloride 0.9% 10 Ml Flush Syringe IV PRN PRN LINE FLUSH Valsartan 80 mg 07/04/21 10:00 07/08/21 11:05 Valsartan 40 Mg Tab PO 80 mg BID HILARY Administration Nutrition/Malnutrition Assess - Dietary Evaluation Nutrition/Malnutrition Findings: Nutrition Notes Start: 07/04/21 16:44 Freq: Status: Active Protocol: Document 07/05/21 15:32 GB (Rec: 07/05/21 15:51 GB [email or web address]) Nutrition Notes Initial or Follow up Reassessment Current Diagnosis Hypertension Other Pertinent Diagnosis consult for life style change diet therapy education Current Diet cardiac Labs/Tests 07/05: mostly unremarkable Pertinent Medications NaCl Height 5 ft 10 in Weight 69.4 kg [place] Body Weight (kg) 75.45 BMI 21.9 Intake Prior to Admission Good Weight change and time frame 07/04 73.48 kg, 07/05 69.4 kg change of -4.082kg for -5.5% change Weight Status Appropriate Percent of energy/protein needs met: 75-100% meal intake meets 80% or greater of estimated energy needs. Burn Absent Trauma Absent GI Symptoms None Food Allergy No Skin Integrity/Comment no reported complications Current % PO Good (75-100%) Interpretation of Weight Loss (severe) >2% in 1 week #1 Nutrition Diagnosis Food and nutrition-related knowledge deficit Etiology HTN As Evidenced by Signs and Symptoms consult for lifestyle nutrition therapy education Is patient on ventilator? No Kcal/Kg value to use for calculation 30 Approximate Energy Requirements Using 2081 kcal/Kg Calculation Used for Recommendations Kcal/kg Additional Notes Protein: 1-1.2 g/k-83g Fluids: 1 ml/kcal or per MD Nutrition Intervention Change Diet Order: continue with current diet Nutrition Support: n/a Add Supplement/Snack (indicate name/kcal Offer snacks throughout day. /protein ) Education Handouts Provided NCM: Cardiac-TLC nutrition therapy Goal #1 po intake of meals to continue at 75% or greater daily during LOS Goal #2 Weight to mainain within +/-5% current weight during LOS Goal #3 Acceptance of nutrition education packet. Follow-Up By: 07/12/21
[2021-07-08 17:05] VITALS: BP 122/61
== END 2021-07-08 18:05 | disposition home health service (06) | DRG 65 ==
LOC: ED 23:45 → 4A 07-04 02:15 → OBSVTOIN 07-04 13:15
PROVIDERS: ADMIT Internal Medicine Geriatric Medicine; ATTEND Internal Medicine
DX: I63.9 Cerebral infarction, unspecified (principal); G81.91 Hemiplegia, unspecified affecting right dominant side; I16.0 Hypertensive urgency; H81.4 Vertigo of central origin; R29.702 NIHSS score 2; R47.81 Slurred speech; I10 Essential (primary) hypertension; F17.210 Nicotine dependence, cigarettes, uncomplicated; Z71.6 Tobacco abuse counseling; R13.10 Dysphagia, unspecified
CPT/HCPCS: 36415; 70450; 70496; 70498; 70551; 72141; 80048; 80053; 80061; 80307; 80320; 81001; 82550; 82553; 82607; 82962; 84443; 84484; 85025; 85610; 85670; 85730; 93005; 93306; 93880; 99406; G0378; A9270-GY; G0480; J1644; Q9967

== ENCOUNTER 2021-08-09 21:47 | Emergency (ER) | payer SELFPAY ==
--- NOTE | 2021-08-09 23:18 | Emergency Department Report ---
ED General Adult HPI - General Chief complaint: High BP Stated complaint: HIGH BLOOD PRESSURE Time Seen by Provider: 08/09/21 22:53 Source: patient Mode of arrival: Wheelchair Limitations: No Limitations - History of Present Illness Initial comments: 61-year-old male presents to ED for elevated blood pressure reading at home. Patient was recently hospitalized with a stroke approximately 1 month ago. 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 Patient states that since his stroke, he has been checking his blood pressure at home every day, several times a day. Patient and his checked blood pressure tonight and systolic BP was in the 200s, which is abnormal for him. Patient reported to triage nurse that he was having some dizziness, however patient explains that he has been having vertigo since his stroke. While in the hospital last month he was given a prescription for meclizine. Patient states he was told to take it as needed, however he states that he has no vertigo daily, so his PCP told him to take the meclizine every day. Patient describes his dizziness as room spinning. Patient denies any new neuro deficits or other symptoms tonight. Only reason for visit was elevated blood pressure. Patient states systolic BP normally runs 130s to 150s. -: This evening Severity scale (0 -10): 0 Improves with: none Worsens with: none Associated Symptoms: denies: chest pain, headaches, nausea/vomiting, shortness of breath, weakness - Related Data Previous Rx's Medication Instructions Recorded Last Taken Type Aspirin 325 mg PO QDAY 30 Days #30 tablet 07/06/21 Unknown Rx AtorvaSTATin [Lipitor] 40 mg PO QHS 30 Days #30 tablet 07/06/21 Unknown Rx ISOSORBIDE MONOnitrate [Imdur ER] 60 mg PO QDAY 30 Days #30 tablet 07/06/21 Unknown Rx Meclizine [Antivert] 12.5 mg PO Q12H PRN 30 Days #60 07/06/21 Unknown Rx tablet Valsartan [Diovan] 80 mg PO BID 30 Days #60 tablet 07/06/21 Unknown Rx Allergies Allergy/AdvReac Type Severity Reaction Status Date / Time No Known Allergies Allergy Unverified 07/04/21 01:14 ED Review of Systems ROS: Stated complaint: HIGH BLOOD PRESSURE Other details as noted in HPI Comment: All other systems reviewed and negative Respiratory: denies: shortness of breath Cardiovascular: denies: chest pain Gastrointestinal: denies: abdominal pain, nausea, vomiting Neurological: vertigo (Chronic). denies: headache ED Past Medical Hx - Past Medical History Previous Medical History?: Yes Hx Hypertension: Yes Hx CVA: Yes Additional medical history: CVA 07/04/21 - Surgical History Past Surgical History?: No - Social History Smoking Status: Current Every Day Smoker - Medications Home Medications: Home Medications Medication Instructions Recorded Confirmed Last Taken Type Aspirin 325 mg PO QDAY 30 Days #30 tablet 07/06/21 08/09/21 Unknown Rx AtorvaSTATin [Lipitor] 40 mg PO QHS 30 Days #30 tablet 07/06/21 08/09/21 Unknown Rx ISOSORBIDE MONOnitrate [Imdur ER] 60 mg PO QDAY 30 Days #30 tablet 07/06/21 08/09/21 Unknown Rx Meclizine [Antivert] 12.5 mg PO Q12H PRN 30 Days #60 07/06/21 08/09/21 Unknown Rx tablet Valsartan [Diovan] 80 mg PO BID 30 Days #60 tablet 07/06/21 08/09/21 Unknown Rx ED Physical Exam - General Limitations: No Limitations General appearance: alert, in no apparent distress - Head Head exam: Present: atraumatic, normocephalic - Eye Eye exam: Present: normal appearance - ENT ENT exam: Present: mucous membranes moist - Neck Neck exam: Present: normal inspection - Respiratory Respiratory exam: Present: normal lung sounds bilaterally. Absent: respiratory distress - Cardiovascular Cardiovascular Exam: Present: regular rate, normal rhythm - GI/Abdominal GI/Abdominal exam: Present: soft. Absent: distended, tenderness - Extremities Exam Extremities exam: Present: normal inspection - Neurological Exam Neurological exam: Present: alert, oriented X3, motor sensory deficit (Baseline right-sided weakness). Absent: CN II-XII intact (Speech is slurred (baseline)) - Psychiatric Psychiatric exam: Present: normal affect, normal mood - Skin Skin exam: Present: warm, dry, intact, normal color ED Course Vital Signs 08/09/21 08/09/21 08/09/21 22:43 23:16 23:30 Temperature 99.0 F Pulse Rate 80 69 73 Respiratory 18 17 14 Rate Blood Pressure 200/101 137/90 Blood Pressure 209/111 [Left] O2 Sat by Pulse 98 98 99 Oximetry 08/09/21 08/10/21 08/10/21 23:46 00:00 00:15 Temperature Pulse Rate 66 65 73 Respiratory 15 15 19 Rate Blood Pressure 142/78 142/78 Blood Pressure 159/84 [Left] O2 Sat by Pulse 98 100 97 Oximetry 08/10/21 08/10/21 00:31 00:45 Temperature Pulse Rate 64 64 Respiratory 15 14 Rate Blood Pressure 164/88 164/88 Blood Pressure [Left] O2 Sat by Pulse 99 99 Oximetry ED Medical Decision Making - Medical Decision Making 61-year-old male presents to ED due to concern for elevated blood pressure. Upon initial arrival here in the ED blood pressure was elevated with systolic BP in the 200s. However, blood pressure improved without intervention. Patient has no neuro deficits on exam. Vertigo is chronic. Will discharge at this time. Outpatient follow-up with PCP advised, return precautions given. Critical care attestation.: If time is entered above; I have spent that time in minutes in the direct care of this critically ill patient, excluding procedure time. ED Disposition Clinical Impression: Elevated blood pressure reading Disposition: 01 HOME / SELF CARE / HOMELESS Is pt being admited?: No Condition: Stable Instructions: Managing Your Hypertension Referrals: PRIMARY MD GREY [Primary Care Provider] - [facility] [place] Time of Disposition: 00:19
[2021-08-10 01:03] VITALS: BP 164/88
== END 2021-08-10 00:50 | disposition home or self-care (01) ==
LOC: ED 21:47
DX: I10 Essential (primary) hypertension (principal); R47.81 Slurred speech; R42 Dizziness and giddiness; Z86.73 Personal history of transient ischemic attack (TIA), and cerebral infarction without residual deficits; F17.200 Nicotine dependence, unspecified, uncomplicated
CPT/HCPCS: 99282